=== PATIENT | female | born 1950 | race Caucasian/White ===

== ENCOUNTER → 2017-01-15 12:52 | Outpatient (CLI) | payer MEDICARE, OTHER ==
[2016-07-17 13:17] VITALS: BMI 24.8
[~2017-01-15 12:52] MED LIST: ADVAIR 500/501 DISK INH; ATIVAN0.5 MG PO; ATROVENT 0.02%2.5 ML INH; BROVANA15 MCG/2 M INH; BROVANA15 MCG/2 M NEB; CHOLESTYRAMIN4 G/PK1 PO; COMBIVENT RESPIM4 GM INH; COUMADIN5 MG PO; DOXYCYCLINE HY100 M2 PO; DUONEB 2.5-0.5 M3 ML NEB; FERREX 150 PLUS1 CAP PO; GLUCOPHAGE1000 MG PO; GLUCOPHAGE500 MG PO; GLUCOTROL XL 5 M5 MG PO; HYDROCHLOROTHIA25 MG PO; HYDROCODON-ACE1 EAC7 PO; K-DUR20 MEQ PO; KLOR-CON M2020 MEQ PO; LEVAQUIN500 MG PO; LEVAQUIN750 MG PO; MAG-OXIDE400 MG PO; MEDROL DOSE PACK4 MG PO; PREDNISONE10 MG PO; PREDNISONE20 MG PO; PREDNISONE5 MG PO; PRINIVIL20 MG PO; PULMICORT0.5 MG/21 INH; SPIRIVA18 MCG INH; STERAPRED 5MG 125 MG PO; STERAPRED DS 1210 MG PO; ZANTAC150 MG PO; ZESTRIL20 MG PO
== END | disposition home or self-care (01) ==
LOC: D.CT 12:52
DX: L92.9 Granulomatous disorder of the skin and subcutaneous tissue, unspecified (principal)

== ENCOUNTER → 2017-07-22 09:54 | Outpatient (CLI) | payer MEDICARE, OTHER ==
[2016-07-17 13:17] VITALS: BMI 24.8
== END | disposition home or self-care (01) ==
LOC: D.CT 09:54
DX: L92.9 Granulomatous disorder of the skin and subcutaneous tissue, unspecified (principal)

== ENCOUNTER 2017-08-05 08:19 | Day surgery (SDC) | payer MEDICARE, OTHER ==
[2017-08-05 08:57] VITALS: BMI 27.3
[2017-08-05 09:03] LABS: HEMATOCRIT 40.1 % (36.0-48.0); HEMOGLOBIN 12.5 g/dL (12-16); MCH 25.6 pg (26.0-34.0); MCHC 31.2 g/dL (31.0-37.0); MEAN PLATELET VOLUME 9.5 fL (7.4-10.4); RBC 4.89 10x6/uL (4.00-5.40); RDW 14.7 % (11.5-14.5); WBC 15.1 10x3/uL (4.8-10.8)
[2017-08-05 09:12] LABS: CALCIUM 9.4 mg/dL (8.5-10.1)
--- NOTE | 2017-08-05 10:44 | NUR ---
1040-RECD FROM GI LAB. DR THRASHER IN TO REPORT FINDINGS.
--- NOTE | 2017-08-05 11:40 | NUR ---
1130-IV D/C, DRESSED AND VOIDED. DISCHARGE INSTRUCTIONS REVIEWED. 1140-D/C HOME VIA WHEELCHAIR.
--- NOTE | 2017-08-05 12:21 | OP ---
PATIENT NAME: LINO ROGERS MEDICAL RECORD: [id number] :46 LOCATION:[facility] ADMISSION DATE: SURGEON: DEMETRIO THRASHER DO DATE OF OPERATION: 08/05/2017 PROCEDURE: Colonoscopy with polypectomy. 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 WITHDRAWAL TIME: 13 minutes. ESTIMATED BLOOD LOSS: Minimal. COMPLICATIONS: None. FINDINGS: Informed consent was given. The patient was made comfortable with the above medication. After reaching an adequate level of sedation by slow IV push, the patient was placed on her left side. A digital rectal examination was performed and revealed some external skin tags secondary to past hemorrhoids. The digital rectal examination was otherwise normal. The endoscope was then advanced under direct visualization through the rectum to the ileocolonic anastomosis. Scope was slowly withdrawn and mucosa was carefully examined. The prep quality was good. There were 2 polyps removed on today's examination. The first was located near the ileocolonic anastomosis. It was a benign appearing sessile polyp measuring approximately 3 mm in diameter. It was removed using hot forceps in one piece and completely retrieved. Second polyp that was removed was located in the sigmoid colon. It was a benign appearing sessile polyp measuring approximately 5 mm in diameter. It was removed using hot forceps in one piece and completely retrieved. There were some hyperplastic-appearing polyps located near the sigmoid polyp that was removed. They were cauterized using hot forceps. A single diverticulum was visualized in the sigmoid colon. Retroflexion was performed in the rectum with visualization of small nonbleeding internal hemorrhoids. The endoscope was then withdrawn from the patient. The patient tolerated the procedure well and there were no complications. IMPRESSION: 1. Two polyps were removed as described above. 2. Single diverticulum indicating diverticulosis without diverticulitis. 3. Small nonbleeding internal hemorrhoids. PLAN AND RECOMMENDATIONS: 1. Discharge home when recovery parameters are met. 2. Follow up biopsy specimen results. 3. High fiber diet. 4. Continue current medications. 5. Recall colonoscopy in 3 years for continued surveillance with a strong history of colon polyps. TRANSINT:[id number] Voice Confirmation ID: [id number] DOCUMENT ID: [id number] OPERATIVE REPORT [id number] LINO ROGERS DEMETRIO THRASHER DO at 1221 CC: [id number] DICTATION DATE: 08/05/17 1033 LAMINATOR PRINTED CIRCUIT BOARDS: 08/05/17 1215 [facility] 08/05/17 [address] [place] [address]
== END 2017-08-05 11:40 | disposition home or self-care (01) ==
LOC: D.OPS 08:19
PROVIDERS: Anesthesiology
DX: K63.5 Polyp of colon (principal); K64.8 Other hemorrhoids; I10 Essential (primary) hypertension; E11.9 Type 2 diabetes mellitus without complications; K21.9 Gastro-esophageal reflux disease without esophagitis; J44.9 Chronic obstructive pulmonary disease, unspecified; Z87.891 Personal history of nicotine dependence

== ENCOUNTER → 2017-11-15 14:08 | Outpatient (CLI) | payer MEDICARE, OTHER | END | disposition home or self-care (01) | LOC: D.MAMMO 10-03 15:30 | DX: Z12.31 Encounter for screening mammogram for malignant neoplasm of breast (principal) ==

== ENCOUNTER 2018-01-16 09:35 | Day surgery (SDC) | payer MEDICARE, OTHER ==
[2018-01-13 16:20] LABS: BASOPHILS 0.5 % (0-2); HEMOGLOBIN 11.8 g/dL (12-16); IMMATURE GRANULOCYTES 0.7 % (0-5); LYMPHOCYTES 28.8 % (15-50); MCH 26.5 pg (26.0-34.0); MCHC 31.1 g/dL (31.0-37.0); MCV 85.4 fL (80.0-100.0); PLATELET COUNT 328 10x3/uL (130-400); RBC 4.45 10x6/uL (4.00-5.40); RDW 14.6 % (11.5-14.5); WBC 13.6 10x3/uL (4.8-10.8)
[2018-01-13 17:08] LABS: INR 2.7 (0.85-1.17)
[2018-01-13 17:41] LABS: ALKALINE PHOSPHATASE 54 U/L (46-116); ALT (SGPT) 29 U/L (10-68); BILIRUBIN - TOTAL 0.27 mg/dL (0.2-1.3); CALC OSMOLALITY 277 mosm/kg (275-300); CARBON DIOXIDE 29.1 mmol/L (21.0-32.0); CHLORIDE - SERUM 100 mmol/L (98-107); CREATININE - SERUM 0.8 mg/dL (0.6-1.3); POTASSIUM - SERUM 3.5 mmol/L (3.5-5.1); PROTEIN - SERUM 7.4 g/dL (6.4-8.2); SODIUM 141 mmol/L (136-145); UREA NITROGEN 8 mg/dL (7-18); eGFR NON AFRICAN AMERICAN 75 mL/min (90-120)
[2018-01-13 17:47] LABS: GLUCOSE 80 mg/dL (74-106)
[~2018-01-16] VITALS: Ht 160 cm; Wt 68.5 kg
--- NOTE | ~2018-01-16 | OP ---
PATIENT NAME: LINO ROGERS MEDICAL RECORD: [id number] :46 LOCATION:[facility] ADMISSION DATE: SURGEON: LANE HUTCHINS MD DATE OF OPERATION: 01/16/2018 PREOPERATIVE DIAGNOSIS: Vaginal mass. POSTOPERATIVE DIAGNOSIS: Vaginal mass. PROCEDURE: Biopsy of vaginal mass. SURGEON: Lane Hutchins MD ANESTHESIA: Dr. Hart. ANESTHETIC: General. FINDINGS: A 2.5 x 0.5 cm raised lesion in the lower third of the vagina on the left vaginal wall. SPECIMEN REMOVED: Portion of vaginal mass. SPECIMEN DISPOSITION: Pathology. ESTIMATED BLOOD LOSS: Minimal. FLUIDS: 500 cc lactated Ringer's. URINE OUTPUT: Quantity sufficient void prior to the procedure. COMPLICATIONS: None. DRAINS: None. INDICATIONS: The patient is a 67-year-old female with a vaginal lesion. Due to its location, it is difficult to visualize in the clinic. The patient is consented for a biopsy in the operating room. DESCRIPTION OF PROCEDURE: After informed consent was assured, the patient was taken to the operating room where anesthetic was obtained. The patient was prepped and draped in the usual sterile fashion after being placed in Angelo stirrups. With animal assistant allowing full visualization, an elliptical biopsy was taken at the edge of the raised lesion in the skin. The specimen was sent to pathology. The brhozi-sn-hzjxr stitch was placed with 3-0 Vicryl and pressure was applied to obtain hemostasis. Povidone gel was placed over the biopsy site. The patient was taken down from the stirrups and went to as recovery area in stable condition. TRANSINT:[id number] Voice Confirmation ID: [id number] DOCUMENT ID: [id number] OPERATIVE REPORT [id number] LINO ROGERS LANE HUTCHINS MD at 1648 CC: [id number] DICTATION DATE: 01/16/18 1348 FIELD NURSE CASE MANAGER: 01/16/18 1353 [facility] 01/16/[address] [address]
[~2018-01-16 09:35] MED LIST changes: +ANORO ELLIPTA1 EACH INH; +CALCIUM 600+D T1 TA1 PO; +CATAPRES0.1 MG; +FERROUS SULFAT325 MG PO; +GABAPENTIN100 MG PO; -GLUCOPHAGE500 MG PO; +GLUCOTROL XL 1010 MG PO; +MAG-OX 400 MG400 MG PO
[2018-01-16 10:00] VITALS: BP 119/71; Ht 160 cm; Wt 68.5 kg
== END 2018-01-16 15:35 | disposition home or self-care (01) ==
LOC: D.OPS 09:35 → D.PAN 12:00 → D.OPS 12:00
PROVIDERS: Anesthesiology
DX: R22.2 Localized swelling, mass and lump, trunk (principal); I10 Essential (primary) hypertension; E11.9 Type 2 diabetes mellitus without complications; J44.9 Chronic obstructive pulmonary disease, unspecified; Z01.812 Encounter for preprocedural laboratory examination

== ENCOUNTER → 2018-01-31 13:01 | Outpatient (CLI) | payer MEDICARE, OTHER ==
[2018-01-16 10:00] VITALS: BMI 26.8
== END | disposition home or self-care (01) ==
LOC: D.CT 13:01
DX: R91.1 Solitary pulmonary nodule (principal)

== ENCOUNTER 2018-10-07 09:45 | Emergency (ER) | payer MEDICARE, OTHER ==
[2018-01-16 10:00] VITALS: Ht 160 cm; Wt 69.1 kg
[~2018-10-07] VITALS: Ht 160 cm; Wt 69.1 kg
[2018-10-07 12:18] VITALS: BP 123/065
== END 2018-10-07 12:20 | disposition home or self-care (01) ==
LOC: D.ER 09:45
DX: J44.1 Chronic obstructive pulmonary disease with (acute) exacerbation (principal)

== ENCOUNTER → 2018-10-29 11:02 | Outpatient (CLI) | payer MEDICARE, OTHER ==
[2018-10-07 09:49] VITALS: BMI 26.9
== END | disposition home or self-care (01) ==
LOC: D.MRI 11:02
DX: M54.16 Radiculopathy, lumbar region (principal)

== ENCOUNTER → 2018-11-28 08:00 | Outpatient (CLI) | payer MEDICARE, OTHER ==
[2018-10-07 09:49] VITALS: BMI 26.9
== END | disposition home or self-care (01) ==
LOC: D.MAMMO 08:00
DX: Z12.31 Encounter for screening mammogram for malignant neoplasm of breast (principal)

== ENCOUNTER 2018-12-14 04:02 | Inpatient (IN) | payer MEDICARE, OTHER ==
[~2018-12-14] VITALS: Ht 160 cm; Wt 68.0 kg
[~2018-12-14 04:02] MED LIST changes: -CATAPRES0.1 MG; +CATAPRES0.1 MG PO
[2018-12-14 04:44] LABS: BASOPHILS 0.1 % (0-2); EOSINOPHILS 0 % (0-7); HEMATOCRIT 33.9 % (36.0-48.0); HEMOGLOBIN 10.4 g/dL (12-16); IMMATURE GRANULOCYTES 0.5 % (0-5); LYMPHOCYTES 4.9 % (15-50); MCH 24.3 pg (26.0-34.0); MCHC 30.7 g/dL (31.0-37.0); MCV 79.2 fL (80.0-100.0); MEAN PLATELET VOLUME 9.1 fL (7.4-10.4); NEUTROPHILS 85.5 % (40-80); RBC 4.28 10x6/uL (4.00-5.40); RDW 16.2 % (11.5-14.5); WBC 10.7 10x3/uL (4.8-10.8)
[2018-12-14 04:45] LABS: PLATELET COUNT 262 10x3/uL (130-400)
[2018-12-14 04:55] LABS: ALBUMIN 3.8 g/dL (3.4-5.0); ALKALINE PHOSPHATASE 62 U/L (46-116); ALT (SGPT) 21 U/L (10-68); BILIRUBIN - TOTAL 0.32 mg/dL (0.2-1.3); CALC OSMOLALITY 274 mosm/kg (275-300); CALCIUM 8.1 mg/dL (8.5-10.1); CARBON DIOXIDE 25.5 mmol/L (21.0-32.0); CHLORIDE - SERUM 97 mmol/L (98-107); GLUCOSE 93 mg/dL (74-106); POTASSIUM - SERUM 3.4 mmol/L (3.5-5.1); PROTEIN - SERUM 7.8 g/dL (6.4-8.2); SODIUM 137 mmol/L (136-145); UREA NITROGEN 15 mg/dL (7-18); eGFR NON AFRICAN AMERICAN 58 mL/min (90-120)
[2018-12-14 05:04] LABS: CREATINE KINASE 43 UL (21-215); PRO BNP 205 pg/mL (0-125)
[2018-12-14 05:06] VITALS: BP 162/72
--- NOTE | 2018-12-14 05:06 | NUR ---
PT RESTING ON BED, NO S/S OF ACUTE DISTRESS NOTED. NS INFUSION STARTED.
[2018-12-14 05:09] LABS: TROPONIN-I < 0.017 ng/mL (0.000-0.060)
[2018-12-14 06:21] VITALS: BP 178/83
--- NOTE | 2018-12-14 06:23 | NUR ---
RECEIVED PT VIA STRETCHER FROM ER. PT AMBULATED TO BED. ALERT AND ORIENTED X4. POOR HISTORIAN. HOME MEDS REVIEWED. O2 @ 2L/NC. RESP EVEN AND NONLABORED. SALINE LOCK NOTED TO LT AC. NO DISTRESS. CL IN REACH.
[2018-12-14 08:51] VITALS: BMI 26.6
[2018-12-14 08:59] VITALS: BP 153/79
[2018-12-14 12:59] LABS: INR 1.95 (0.85-1.17); PROTIME 21.6 SECONDS (11.6-15.0)
[2018-12-14 13:09] VITALS: BP 115/60
[2018-12-14 16:47] VITALS: BP 149/69
[2018-12-14 17:33] LABS: % SATURATION 3 % (15-55); IRON 15 ug/dl (35-150); TOTAL IRON BIND CAPACITY 423 ug/dl (260-445); UNSAT IRON BIND CAPACITY 408 ug/dl (150-375)
[2018-12-14 19:35] LABS: CKMB 1.9 U/L (0.0-3.6); CREATINE KINASE 66 UL (21-215)
[2018-12-14 19:39] LABS: TROPONIN-I < 0.017 ng/mL (0.000-0.060)
[2018-12-14 20:00] VITALS: BP 139/55
[2018-12-14 23:53] LABS: CKMB 1.9 U/L (0.0-3.6); CREATINE KINASE 73 UL (21-215)
[2018-12-14 23:54] LABS: TROPONIN-I < 0.017 ng/mL (0.000-0.060)
[2018-12-15] VITALS: BP 132/57
[2018-12-15 03:00] VITALS: BP 147/80
[2018-12-15 06:03] LABS: BASOPHILS 0 % (0-2); EOSINOPHILS 0 % (0-7); HEMATOCRIT 32.7 % (36.0-48.0); HEMOGLOBIN 9.9 g/dL (12-16); IMMATURE GRANULOCYTES 0.4 % (0-5); LYMPHOCYTES 6.5 % (15-50); MCHC 30.3 g/dL (31.0-37.0); MCV 79.2 fL (80.0-100.0); MEAN PLATELET VOLUME 9.3 fL (7.4-10.4); MONOCYTES 2.7 % (2-11); NEUTROPHILS 90.4 % (40-80); PLATELET COUNT 237 10x3/uL (130-400); RBC 4.13 10x6/uL (4.00-5.40); RDW 16.3 % (11.5-14.5)
[2018-12-15 06:07] LABS: INR 1.98 (0.85-1.17); PROTIME 21.8 SECONDS (11.6-15.0)
[2018-12-15 06:08] LABS: WBC 5.1 10x3/uL (4.8-10.8)
[2018-12-15 06:46] LABS: CALC OSMOLALITY 287 mosm/kg (275-300); CALCIUM 7.9 mg/dL (8.5-10.1); CHLORIDE - SERUM 103 mmol/L (98-107); CKMB 1.6 U/L (0.0-3.6); CREATINE KINASE 63 UL (21-215); CREATININE - SERUM 0.8 mg/dL (0.6-1.3); GLUCOSE 223 mg/dL (74-106); POTASSIUM - SERUM 3.6 mmol/L (3.5-5.1); SODIUM 141 mmol/L (136-145); TROPONIN-I < 0.017 ng/mL (0.000-0.060); UREA NITROGEN 13 mg/dL (7-18); eGFR NON AFRICAN AMERICAN 75 mL/min (90-120)
--- NOTE | 2018-12-15 07:15 | NUR ---
MORNING ASSESSMENT COMPLETE. SEE ASSESSMENT [facility] FOR FURTHER DETAILS. PT LYING IN BED AAO X4 TO PERSON, PLACE, TIME, AND SITUATION. DENIES NEEDS AT THIS TIME. CL IN REACH. SIDE RAILS UP X3 FOR PATIENT SAEFTY.
[2018-12-15 08:44] VITALS: BP 150/78
[2018-12-15 11:54] VITALS: Ht 160 cm; Wt 68.0 kg
--- NOTE | 2018-12-15 16:55 | NUR ---
OT NOTE: PT COMPLETED BUE AROM AXS WITH REST BREAKS. PT COMPLETED BED MOB WITH MIN A AND REST BREAKS. PT COMPLETED SIMPLE GROOMING WITH SET UP. THANK YOU, MONTSERRAT MATTSON THANK YOU, SAUL THOMAS
[2018-12-15 17:17] VITALS: BP 133/68
--- NOTE | 2018-12-15 20:00 | NUR ---
PT SITTING UP IN BED, NO SIGNS OF DISTRESS. ALERT AND ORIENTED. O2 2L/NC. DROPLET ISOLATION IN PLACE. SCDS ON. IV LEFT AC INFUSING NS @ 50. DENIES NEEDS AT THIS TIME. CL IN REACH, WILL CONT TO MONITOR
[2018-12-15 20:34] VITALS: BP 140/69
[2018-12-16 04:37] LABS: BASOPHILS 0 % (0-2); EOSINOPHILS 0.1 % (0-7); HEMATOCRIT 31.2 % (36.0-48.0); HEMOGLOBIN 9.4 g/dL (12-16); IMMATURE GRANULOCYTES 0.4 % (0-5); LYMPHOCYTES 3.1 % (15-50); MCH 23.7 pg (26.0-34.0); MCHC 30.1 g/dL (31.0-37.0); MCV 78.8 fL (80.0-100.0); MEAN PLATELET VOLUME 9.2 fL (7.4-10.4); MONOCYTES 5.8 % (2-11); NEUTROPHILS 90.6 % (40-80); PLATELET COUNT 257 10x3/uL (130-400); RBC 3.96 10x6/uL (4.00-5.40); RDW 15.9 % (11.5-14.5)
[2018-12-16 04:47] LABS: WBC 11.6 10x3/uL (4.8-10.8)
[2018-12-16 04:55] LABS: INR 2.72 (0.85-1.17); PROTIME 28.1 SECONDS (11.6-15.0)
[2018-12-16 05:13] LABS: ALBUMIN 3.2 g/dL (3.4-5.0); ALKALINE PHOSPHATASE 47 U/L (46-116); ALT (SGPT) 21 U/L (10-68); BILIRUBIN - TOTAL 0.18 mg/dL (0.2-1.3); CALCIUM 7.6 mg/dL (8.5-10.1); CARBON DIOXIDE 28.4 mmol/L (21.0-32.0); CHLORIDE - SERUM 101 mmol/L (98-107); CREATININE - SERUM 0.8 mg/dL (0.6-1.3); GLUCOSE 186 mg/dL (74-106); PROTEIN - SERUM 6.6 g/dL (6.4-8.2); SODIUM 138 mmol/L (136-145); eGFR NON AFRICAN AMERICAN 75 mL/min (90-120)
[2018-12-16 05:22] LABS: CALC OSMOLALITY 283 mosm/kg (275-300); POTASSIUM - SERUM 2.9 mmol/L (3.5-5.1); UREA NITROGEN 21 mg/dL (7-18)
[2018-12-16 05:48] VITALS: BP 152/71
--- NOTE | 2018-12-16 07:30 | NUR ---
REC'D IN BED AWAKE AND ALERT. RESP EVEN AND UNLABORED WITH NO DISTRESS NOTED. CAN EXPRESS NEEDS AND WANTS. DENIES ANY PAIN OR DISCOMFORT AT THIS TIME. ASSESSMENT COMPLETED. C/L IN REACH AT BEDSIDE
[2018-12-16 09:46] VITALS: BP 170/77
[2018-12-16 15:10] VITALS: BP 116/71; BP 143/68
--- NOTE | 2018-12-16 16:26 | MORECARE ---
CASE MANAGEMENT DISCHARGE SUMMARY PATIENT: LINO ROGERS ANN UNIT: [id number] ADM DATE: 12/14/18 AGE: 68 : 48 SEX: F ROOM/BED: D.2203 AUTHOR: FAYE YANG PHYSICIAN: REFERRING PHYSICIAN: CLARENCE TOPETE MD DATE OF SERVICE: 12/16/18 Discharge Plan Patient Name: LINO ROGERS [facility] [facility] 1950 Planned Disposition: Anticipated Discharge Date: Discharge Date: Expected LOS: Initial Reviewer: [email or web address] Initial Review Date: 12/14/2018 Generated: 12/16/18 5:26 pm Comments DCP- Discharge Planning Updated by [email or web address]: Leti Wiley on 12/16/18 3:[address] attempted to see patient for assessment, but she was sleeping. will tray again tomorrow Patient Name: LINO ROGERS Page [id number] at 1626 All edits/amendments must be made on the electronic document DICTATION DATE: 12/16/181625 FREELANCE DIRECTOR: MIRA 12/16/181625 RPT#: [id number] DC DATE: STATUS: ADM IN [facility] [address] [place] [address] END OF REPORT
--- NOTE | 2018-12-16 16:38 | NUR ---
OT NOTE: PT COMPLETED BED MOB AND SITTING AT EOB WITH SBA. PT COMPLETED BUE AROM EXS WITH REST BREAKS. THANK YOU, SAUL THOMAS
--- NOTE | 2018-12-16 16:47 | NUR ---
I have reviewed this patient and I concur with the Shift Assessment completed by the Licensed Practical Nurse today this shift.
--- NOTE | 2018-12-16 16:55 | NUR ---
OT NOTE: PT CONT TO C/O SEVERE SOB WITH MINIMAL EXERTION. REPORTS THAT SHE IS COMPLETELY EXHAUSTED AFTER GOING TO BATHROOM. PT ABLE TO PERFORM BED MOB ADN SIT TO STAND WITH CGA; TOILETING WITH SBA ( HOWEVER, PT HAS REPORTEDLY GOING WITHOUT ASSIST. STANDING BALANCE IS GOOD) UE EXS WITH ONLY 5-10 REPS WITH EXT REST BREAK FOLLOWING EACH SET. LYDIA FLOYD, OTR/L
[2018-12-16 17:24] VITALS: BP 122/70
--- NOTE | 2018-12-16 19:50 | NUR ---
PT SITTING UP IN BED, NO SIGNS OF DISTRESS. ALERT AND ORIENTED. IV LEFT AC, NO REDNESS OR SWELLING AT INSERTION SITE. DRESSING CDI. DROPLET ISOLATION IN PLACE. HR 84 SR PER TELE. PT ANXIOUS AT TIMES, RECIEVING ATIVAN NEEDED. SCDS ON. NO COMPAINTS OR NEEDS AT THIS TIME. CL IN REACH, WILL CONTINUE TO MONITOR
[2018-12-16 21:37] VITALS: BP 130/71
--- NOTE | 2018-12-17 00:30 | NUR ---
PT SHORT OF BREATH UPON ENTERING ROOM. O2 SAT 94% BUT CANNOT CATCH HER BREATH. NO ACTIVITY PRIOR TO BECOMING SOB W/ AUDIBLE WHEEZES. CALLED ELAN TOOL MACHINE SETUP OPERATOR, ORDERS FOR DUONEB Q2PRN. PATIENT GIVEN TRX AND IMMEDIATELY BREATHING BECAME SLOW AND EVEN. NO OTHER NEEDS AT THIS TIME. CL IN REACH, WILL CONTINUE TO MONITOR
[2018-12-17 01:33] VITALS: BP 130/79
[2018-12-17 04:17] LABS: BASOPHILS 0.1 % (0-2); EOSINOPHILS 0 % (0-7); HEMATOCRIT 30.6 % (36.0-48.0); HEMOGLOBIN 9.3 g/dL (12-16); IMMATURE GRANULOCYTES 1.1 % (0-5); LYMPHOCYTES 2.9 % (15-50); MCH 23.8 pg (26.0-34.0); MCHC 30.4 g/dL (31.0-37.0); MCV 78.3 fL (80.0-100.0); MEAN PLATELET VOLUME 8.9 fL (7.4-10.4); NEUTROPHILS 89.9 % (40-80); PLATELET COUNT 242 10x3/uL (130-400); RBC 3.91 10x6/uL (4.00-5.40); RDW 16.1 % (11.5-14.5); WBC 10.2 10x3/uL (4.8-10.8)
[2018-12-17 04:34] LABS: ALBUMIN 3.2 g/dL (3.4-5.0); BILIRUBIN - TOTAL 0.37 mg/dL (0.2-1.3); CALCIUM 8.3 mg/dL (8.5-10.1); CARBON DIOXIDE 34.2 mmol/L (21.0-32.0); CREATININE - SERUM 0.9 mg/dL (0.6-1.3); PROTEIN - SERUM 6.6 g/dL (6.4-8.2)
[2018-12-17 04:35] LABS: ANION GAP 9.2 mmol/L (8-16); POTASSIUM - SERUM 3.4 mmol/L (3.5-5.1)
[2018-12-17 04:37] LABS: INR 3.77 (0.85-1.17); PROTIME 36.4 SECONDS (11.6-15.0)
[2018-12-17 04:48] VITALS: BP 134/66
[2018-12-17 08:45] VITALS: BP 124/56
[2018-12-17 09:19] LABS: FOLATE (FOLIC ACID) - SERUM 15.3 ng/mL (>3.0)
[2018-12-17 12:40] VITALS: BP 130/81
--- NOTE | 2018-12-17 14:28 | MORECARE ---
CASE MANAGEMENT DISCHARGE SUMMARY PATIENT: LINO ROGERS ANN UNIT: [id number] ADM DATE: 12/14/18 AGE: 68 : 48 SEX: F ROOM/BED: D.2203 AUTHOR: FAYE YANG PHYSICIAN: REFERRING PHYSICIAN: CLARENCE TOPETE MD DATE OF SERVICE: 12/17/18 Discharge Plan Patient Name: LINO ROGERS [facility] [facility] 1950 Planned Disposition: Home Anticipated Discharge Date: Discharge Date: Expected LOS: Initial Reviewer: [email or web address] Initial Review Date: 12/14/2018 Generated: 12/17/18 3:27 pm Comments DCP- Discharge Planning Updated by [email or web address]: Leti Wiley on 12/16/18 3:[address] attempted to see patient for assessment, but she was sleeping. will tray again tomorrow DCPIA - Discharge Planning Initial Assessment Updated by [email or web address]: Leti Wiley on 12/17/18 2:28 pm * Is the patient Alert and Oriented? Yes * How many steps to enter\exit or inside your home? * PCP DEYSI * Pharmacy [address] * Preadmission Environment Home with Family * ADLs Independent * Equipment None * List name and contact numbers for known caregivers / representatives who currently or will assist patient after discharge: ANITA ROGERS ([phone]) * Verbal permission to speak to the caregivers and representatives has been obtained from the patient. N/A * Community resources currently utilized None * Additional services required to return to the preadmission environment? No * Can the patient safely return to the preadmission environment? Yes * Has this patient been hospitalized within the prior 30 days at any hospital? No Last DP export: 12/16/18 3:26 p Patient Name: LINO ROGERS Page [phone] at 1428 All edits/amendments must be made on the electronic document DICTATION DATE: 12/17/181426 OPTOMETRIST ASSISTANT: MIRA 12/17/181426 RPT#: [id number] DC DATE: STATUS: ADM IN [facility] [address] [place] [address] END OF REPORT
--- NOTE | 2018-12-17 14:37 | MORECARE ---
CASE MANAGEMENT DISCHARGE SUMMARY PATIENT: LINO ROGERS ANN UNIT: [id number] ADM DATE: 12/14/18 AGE: 68 : 48 SEX: F ROOM/BED: D.2203 AUTHOR: FAYE YANG PHYSICIAN: REFERRING PHYSICIAN: CLARENCE TOPETE MD DATE OF SERVICE: 12/17/18 Discharge Plan Patient Name: LINO ROGERS Facility: [facility]:[place] : 1950 Planned Disposition: Home Anticipated Discharge Date: Discharge Date: Expected LOS: Initial Reviewer: [email or web address] Initial Review Date: 12/14/2018 Generated: 12/17/18 3:36 pm Comments DCP- Discharge Planning Updated by [email or web address]: Leti Wiley on 12/17/18 1:[address] Patient Name: LINO ROGERS Admission Status: ER Accout number: [id number] Admission Date: 12-14-2018 : 1950 Admission Diagnosis:SHORTNESS OF BREATH Attending: CLARENCE TOPETE Current LOS: 3 Anticipated DC Date: Planned Disposition: Home Primary Insurance: MEDICARE A & B Discharge Planning Comments: CM met with patient to complete initial dc planning assessment. CM educated patient on the CM role and verbal consent given by patient to complete assessment. Patient lives at home with her and stated that she is independent with her care. At discharge patient plans to return home and feels this is a safe discharge. CM discussed availability of home health, rehab services, and medical equipment. She stated that one of her kids would be taking her home . She also stated that her is a patient down stairs at the hospital. Patient denied known discharge needs at this time. CM will continue to follow and will assist as needed with dc plans/needs. Community Development Director: Leti Wiley DCP- Discharge Planning Updated by [email or web address]: Leti Wiley on 12/16/18 3:[address] attempted to see patient for assessment, but she was sleeping. will tray again tomorrow DCPIA - Discharge Planning Initial Assessment Updated by [email or web address]: Leti Wiley on 12/17/18 2:28 pm * Is the patient Alert and Oriented? Yes * How many steps to enter\exit or inside your home? * PCP JO * Pharmacy [address] * Preadmission Environment Home with Family * ADLs Independent * Equipment None * List name and contact numbers for known caregivers / representatives who currently or will assist patient after discharge: ANITA ROGERS ([phone]) * Verbal permission to speak to the caregivers and representatives has been obtained from the patient. N/A * Community resources currently utilized None * Additional services required to return to the preadmission environment? No * Can the patient safely return to the preadmission environment? Yes * Has this patient been hospitalized within the prior 30 days at any hospital? No Last DP export: 12/17/18 1:28 p Patient Name: LINO ROGERS Page [phone] at 1437 All edits/amendments must be made on the electronic document DICTATION DATE: 12/17/181435 BEAD SUPERVISOR: MIRA 12/17/181435 RPT#: [id number] DC DATE: STATUS: ADM IN [facility] [address] [place] [address] END OF REPORT
[2018-12-17 16:45] VITALS: BP 153/73
--- NOTE | 2018-12-17 16:47 | NUR ---
I have reviewed this patient and I concur with the Shift Assessment completed by the Licensed Practical Nurse today this shift.
--- NOTE | 2018-12-17 18:33 | NUR ---
PT REQUESTED ATIVAN FOR ANXIETY WAS MEDICATED WITH ATIVAN PER ORDERS.C/L IN REACH.
[2018-12-17 21:47] VITALS: BP 143/73
[2018-12-18 01:16] VITALS: BP 158/73
[2018-12-18 04:37] VITALS: BP 164/74
[2018-12-18 04:51] LABS: BASOPHILS 0.1 % (0-2); EOSINOPHILS 0 % (0-7); HEMATOCRIT 32.5 % (36.0-48.0); HEMOGLOBIN 9.8 g/dL (12-16); MCH 23.8 pg (26.0-34.0); MCHC 30.2 g/dL (31.0-37.0); MCV 78.9 fL (80.0-100.0); MEAN PLATELET VOLUME 9.4 fL (7.4-10.4); MONOCYTES 5.5 % (2-11); NEUTROPHILS 87.4 % (40-80); PLATELET COUNT 241 10x3/uL (130-400); RBC 4.12 10x6/uL (4.00-5.40); RDW 15.9 % (11.5-14.5); WBC 8.6 10x3/uL (4.8-10.8)
[2018-12-18 05:02] LABS: INR 4.06 (0.85-1.17); PROTIME 38.6 SECONDS (11.6-15.0)
[2018-12-18 05:15] LABS: ALBUMIN 3.3 g/dL (3.4-5.0); ANION GAP 11.9 mmol/L (8-16); BILIRUBIN - TOTAL 0.41 mg/dL (0.2-1.3); CALCIUM 8.7 mg/dL (8.5-10.1); CARBON DIOXIDE 31.1 mmol/L (21.0-32.0); PROTEIN - SERUM 6.3 g/dL (6.4-8.2)
--- NOTE | 2018-12-18 07:50 | NUR ---
PT RESTING IN BED WITH EYES CLOSED. AROUSED BY VERBAL STIMULI. DROPLET ISOLATION FOR FLU. NO S/S OF ACUTE DISTRESS. CL IN PLACE.
--- NOTE | 2018-12-18 07:54 | NUR ---
PT REFUSED INITIAL BRETHING TX CHARGE NURSE NOTIFIED
[2018-12-18 10:39] VITALS: BP 186/91
--- NOTE | 2018-12-18 10:39 | NUR ---
NUTRITION F/U PT REMAINS IN ISOLATION. VISITOR AT BEDSIDE. PT REPORTS TOLERATING DIABETIC DIET. WILL CONTINUE TO PROVIDE DIET, MONITOR PT PROGRESS. RD FOLLOWING
--- NOTE | 2018-12-18 12:20 | NUR ---
OT NOTE: PT VERY FRUSTRATED AND TEARFUL TODAY STATING THAT SHES NOT GETTING ANY BETTER AND STILL CANT BREATH. PT PERFORMING BED MOB WITH SPV; AMB TO BATHROOM WITH CGA, GAIT BELT, IV POLE AND 02. TOILETING AND GROOMING WITH SPV. REQUIRES EXT TIME DUE TO FREQ REST BREAKS REQUIRED. LYDIA FLOYD, OTR/L
[2018-12-18 13:03] VITALS: BP 158/77
[2018-12-18 17:59] VITALS: BP 155/76
--- NOTE | 2018-12-18 18:20 | NUR ---
PT RESTING IN BED. NO S/S OF ACUTE DISTRESS. CL IN PLACE.
[2018-12-18 20:20] VITALS: BP 189/85
--- NOTE | 2018-12-18 20:46 | NUR ---
OT NOTE: PT COMPLETED SIT TO STANDS, EOB SITTINB BALANCE, AND BED MOB WITH SBA. PT COMPLETED BUE AROM EXS AT EOB. PT COMPLETED SIMPLE GROOMING TASK AT EOB WITH SET UP. THANK YOU, SAUL THOMAS
[2018-12-19 00:31] VITALS: BP 152/60
[2018-12-19 04:17] VITALS: BP 161/93
[2018-12-19 04:30] LABS: BASOPHILS 0.1 % (0-2); EOSINOPHILS 0.1 % (0-7); HEMATOCRIT 33.8 % (36.0-48.0); HEMOGLOBIN 10.3 g/dL (12-16); IMMATURE GRANULOCYTES 3.3 % (0-5); LYMPHOCYTES 9.7 % (15-50); MCH 24.1 pg (26.0-34.0); MCHC 30.5 g/dL (31.0-37.0); MCV 79.2 fL (80.0-100.0); MEAN PLATELET VOLUME 9.2 fL (7.4-10.4); MONOCYTES 9.9 % (2-11); NEUTROPHILS 76.9 % (40-80); RBC 4.27 10x6/uL (4.00-5.40)
[2018-12-19 04:32] LABS: PLATELET COUNT 303 10x3/uL (130-400); WBC 13.8 10x3/uL (4.8-10.8)
[2018-12-19 04:40] LABS: PROTIME 31.4 SECONDS (11.6-15.0)
[2018-12-19 04:43] LABS: INR 3.12 (0.85-1.17)
[2018-12-19 05:03] LABS: ALBUMIN 3.4 g/dL (3.4-5.0); BILIRUBIN - TOTAL 0.5 mg/dL (0.2-1.3); CALCIUM 8.2 mg/dL (8.5-10.1); CREATININE - SERUM 0.9 mg/dL (0.6-1.3); PROTEIN - SERUM 6.5 g/dL (6.4-8.2)
[2018-12-19 09:38] VITALS: BP 180/94
--- NOTE | 2018-12-19 10:32 | NUR ---
Rehab Prescreening Consult recieved and the chart has been reviewed. She is a good ARU candidate when medically stable and able to participate in the required 3 hrs of therapy. She is not feeling well today and has orders pending. Pippa Flores RN Clinical Liaison, Rehab
[2018-12-19 13:53] LABS: APPEARANCE CLEAR (CLEAR); BILIRUBIN NEGATIVE (NEGATIVE); COLOR YELLOW (YELLOW); GLUCOSE NEGATIVE (NEGATIVE); KETONE NEGATIVE (NEGATIVE); NITRITE NEGATIVE (NEGATIVE); PROTEIN NEGATIVE (NEGATIVE); UROBILINOGEN NORMAL (NORMAL)
[2018-12-19 13:55] VITALS: BP 136/65
--- NOTE | 2018-12-19 14:57 | EC ---
PATIENT:LINO ROGERS DATE OF SERVICE: 12/14/18 SEX: F MEDICAL RECORD: [id number] DATE OF : [birth year] LOCATION:[facility] AGE OF PATIENT: 68 ADMISSION DATE: 12/14/18 REFERRING PHYSICIAN: INTERPRETING PHYSICIAN: FRANKI CISSE MD ECHOCARDIOGRAM REPORT ECHO CHARGES 4 ECHO COMPLETE Date: 12/15/18 CLINICAL DIAGNOSIS: EVALUATE FUNCTION ECHOCARDIOGRAPHIC MEASUREMENTS (adult normal given) AC root (d.<3.7cm) 2.7 cm LV Septum d (<1.2 cm> 1.0 cm Valve Excursion 1.6 cm LV Septum (systole) 1.2 cm Left Atria (s.<4.0cm> 2.5 cm LVPW d(<1.2cm) 1.3 cm RV (d.<2.3cm) 2.2 cm LVPW (sytole) 1.5 cm LV diastole(<5.6CM) 4.9 cm MV E-F(>70mm/sec) cm LV systole 4.4 cm LVOT Diameter 1.7 cm MV exc.(>10mm) cm Est.ejection fraction (50-75%) % DOPPLER: LVIT cm/sec A 28 cm/sec E 117 cm/sec LA cm/sec RVSP 17.0 mmHg LVOT 135 cm/sec AOP1/2T m/s Asc. Ao 163 cm/sec RVOT 65 cm/sec RA cm/sec PA 103 cm/sec AV Gradient Peak 10.6 mmHg AV Mean 5.8 mmHg AV Area 2.2 cm MV Gradient Peak 6.4 mmHg MV Mean 2.0 mmHg MV Area cm COMMENTS: Dispensary Technician: Tammy OROURKE Field Support Specialist: 1 Dr. Cisse TAPE# PACS Pericardial Effusion N DATE OF SERVICE: 12/15/2018 FINDINGS: 1. Left ventricular chamber size is within normal limits. Left ventricular systolic function is normal. Overall ejection fraction is estimated at 60%. 2. Left atrium, right atrium, and right ventricular chamber sizes are within normal limit. 3. Valvular structures have normal structure and motion. 4. Doppler interrogation reveals trace tricuspid regurgitation. No other valvular insufficiency or stenosis. Pulmonary systolic pressure is estimated at ECHOCARDIOGRAM REPORT [id number] LINO ROGERS 17 mmHg. 5. No evidence of pericardial effusion or left ventricular thrombus. TRANSINT:[id number] Voice Confirmation ID: [id number] DOCUMENT ID: [id number] FRANKI CISSE MD at 1457 CC: [id number] DICTATION DATE: 12/15/18 1637 CASH MANAGEMENT CLERK: 12/15/18 191 ADM IN [facility] [address] [place] [address]
[2018-12-19 18:07] VITALS: BP 154/75
--- NOTE | 2018-12-19 19:30 | NUR ---
PT LYING IN BED ASLEEP, NO SIGNS OF DISTRESS. IV LEFT AC INFUSING NS @ 10. NO REDNESS OR SWELLING AT INSERTION SITE. DRESSING CDI. CL IN REACH, WILL CONTINUE TO MONITOR
[2018-12-19 20:53] VITALS: BP 138/73
--- NOTE | 2018-12-19 22:20 | NUR ---
PT SITTING UP IN BED, SOME ANXIETY AND STATING SHE DOES NOT KNOW WHY SHE IS NOT GETTING BETTER. REQUESTED AND GIVEN ATIVAN. BS 111, NO COVERAGE. CL IN REACH, WILL CONTINUE TO MONITOR
--- NOTE | 2018-12-20 03:00 | NUR ---
PT GETTING ANXIOUS, GAVE ATIVAN. DENIES OTHER NEEDS AT THIS TIME. CL IN REACH, WILL CONTINUE TO MONITOR
[2018-12-20 06:42] LABS: BASOPHILS 0.1 % (0-2); EOSINOPHILS 1.5 % (0-7); HEMATOCRIT 35.3 % (36.0-48.0); HEMOGLOBIN 10.6 g/dL (12-16); IMMATURE GRANULOCYTES 1.6 % (0-5); LYMPHOCYTES 8.5 % (15-50); MCH 23.8 pg (26.0-34.0); MCV 79.3 fL (80.0-100.0); MEAN PLATELET VOLUME 9.3 fL (7.4-10.4); MONOCYTES 10.2 % (2-11); NEUTROPHILS 78.1 % (40-80); PLATELET COUNT 287 10x3/uL (130-400); RBC 4.45 10x6/uL (4.00-5.40); RDW 16.2 % (11.5-14.5); WBC 14.2 10x3/uL (4.8-10.8)
[2018-12-20 07:12] LABS: INR 2.18 (0.85-1.17); PROTIME 23.6 SECONDS (11.6-15.0)
[2018-12-20 07:30] LABS: ALBUMIN 3.1 g/dL (3.4-5.0); ALKALINE PHOSPHATASE 53 U/L (46-116); ALT (SGPT) 51 U/L (10-68); BILIRUBIN - TOTAL 0.81 mg/dL (0.2-1.3); CALC OSMOLALITY 269 mosm/kg (275-300); CALCIUM 8.4 mg/dL (8.5-10.1); CARBON DIOXIDE 33.9 mmol/L (21.0-32.0); CHLORIDE - SERUM 92 mmol/L (98-107); CREATININE - SERUM 0.7 mg/dL (0.6-1.3); GLUCOSE 135 mg/dL (74-106); POTASSIUM - SERUM 3.5 mmol/L (3.5-5.1); PROTEIN - SERUM 6.5 g/dL (6.4-8.2); SODIUM 133 mmol/L (136-145); UREA NITROGEN 19 mg/dL (7-18); eGFR NON AFRICAN AMERICAN 88 mL/min (90-120)
[2018-12-20 09:19] VITALS: BP 111/70
[2018-12-20 14:25] VITALS: BP 113/60
[2018-12-20 18:05] VITALS: BP 135/75
[2018-12-20 20:00] VITALS: BP 118/68
--- NOTE | 2018-12-20 20:30 | NUR ---
PT ANXIOUS, STATING SHE STILL DOES NOT FEEL LIKE SHE IS GETTING BETTER. GAVE ATIVAN REQUESTED. ALERT AND ORIENTED. OCCASIONAL NONPRODUCTIVE COUGH. HR 84 SR PER TELE. EXP WHEEZES HEARD BILAT. IV LEFT FA INFUSING NS @ KVO. BS 117, NO COVERAGE PER SS. DENIES NEEDS AT THIS TIME. CL IN REACH, WILL CONTINUE TO MONITOR
[2018-12-21] VITALS: BP 121/71
[2018-12-21 04:00] VITALS: BP 123/60
[2018-12-21 05:01] LABS: BASOPHILS 0.1 % (0-2); EOSINOPHILS 3.5 % (0-7); HEMATOCRIT 33.6 % (36.0-48.0); HEMOGLOBIN 10.1 g/dL (12-16); IMMATURE GRANULOCYTES 1.7 % (0-5); LYMPHOCYTES 13.3 % (15-50); MCH 23.7 pg (26.0-34.0); MCHC 30.1 g/dL (31.0-37.0); MCV 78.7 fL (80.0-100.0); MEAN PLATELET VOLUME 9.1 fL (7.4-10.4); MONOCYTES 12.6 % (2-11); NEUTROPHILS 68.8 % (40-80); PLATELET COUNT 260 10x3/uL (130-400); RBC 4.27 10x6/uL (4.00-5.40); RDW 16.2 % (11.5-14.5)
[2018-12-21 05:06] LABS: WBC 10.4 10x3/uL (4.8-10.8)
[2018-12-21 05:26] LABS: CALC OSMOLALITY 266 mosm/kg (275-300); CARBON DIOXIDE 34.6 mmol/L (21.0-32.0); CHLORIDE - SERUM 94 mmol/L (98-107); CREATININE - SERUM 0.8 mg/dL (0.6-1.3); GLUCOSE 101 mg/dL (74-106); POTASSIUM - SERUM 3.1 mmol/L (3.5-5.1); SODIUM 133 mmol/L (136-145); THYROID STIMULATING HORMONE 0.22 uIU/mL (0.36-3.74); UREA NITROGEN 16 mg/dL (7-18); eGFR NON AFRICAN AMERICAN 75 mL/min (90-120)
[2018-12-21 05:27] LABS: INR 1.57 (0.85-1.17); PROTIME 18.2 SECONDS (11.6-15.0)
[2018-12-21 10:10] VITALS: BP 109/65
--- NOTE | 2018-12-21 13:40 | NUR ---
OT NOTE: REFUSED OT TODAY REPORTING THAT SHE WAS TOO TIRED AND FELT VERY BAD. WILL ATTEMPT TOMORROW. LYDIA FLOYD, OTR/L
[2018-12-21 14:23] VITALS: BP 101/54
[2018-12-21 16:00] VITALS: BP 126/66
[2018-12-21 20:00] VITALS: BP 119/50; BP 221/60
--- NOTE | 2018-12-21 20:30 | NUR ---
PT SITTING UP IN BED, NO SIGNS OF DISTRESS. ALERT AND ORIENTED. PT REQUESTING ATIVAN STATING SHE FEELS AN ANXIETY ATTACK COMING ON. GAVE ATIVAN ORDERED. DOES NOT WANT TO WEAR SCDS AT THIS TIME. BS 134, NO COVERAGE PER SS. DENIES OTHER NEEDS OR COMPLAINTS AT THIS TIME. CL IN REACH, WILL CONTINUE TO MONITOR
[2018-12-22] VITALS: BP 121/56
[2018-12-22 03:00] VITALS: BP 125/61
[2018-12-22 05:36] LABS: CARBON DIOXIDE 29.4 mmol/L (21.0-32.0); CHLORIDE - SERUM 92 mmol/L (98-107); CREATININE - SERUM 0.8 mg/dL (0.6-1.3); POTASSIUM - SERUM 4.1 mmol/L (3.5-5.1); SODIUM 129 mmol/L (136-145); eGFR NON AFRICAN AMERICAN 75 mL/min (90-120)
[2018-12-22 05:40] LABS: CALC OSMOLALITY 269 mosm/kg (275-300); GLUCOSE 237 mg/dL (74-106); UREA NITROGEN 22 mg/dL (7-18)
[2018-12-22 05:45] LABS: INR 1.33 (0.85-1.17); PROTIME 15.9 SECONDS (11.6-15.0)
[2018-12-22 05:49] LABS: HEMATOCRIT 30.9 % (36.0-48.0); HEMOGLOBIN 9.6 g/dL (12-16); MCH 24.1 pg (26.0-34.0); MCHC 31.1 g/dL (31.0-37.0); MCV 77.6 fL (80.0-100.0); MEAN PLATELET VOLUME 9.3 fL (7.4-10.4); PLATELET COUNT 251 10x3/uL (130-400); RBC 3.98 10x6/uL (4.00-5.40); WBC 10.1 10x3/uL (4.8-10.8)
[2018-12-22 06:37] LABS: HYPER SEGMENTED NEUTROPHILS 1+; LYMPHOCYTES 3 % (15-50); NEUTROPHILS 94 % (40-80); PLATELET ESTIMATE NORMAL
[2018-12-22 06:38] LABS: ANISOCYTOSIS 3+; ELLIPTOCYTES 2+
--- NOTE | 2018-12-22 08:00 | NUR ---
MORNING ASSESSMENT COMPLETE SEE ASSESSMENT FL[facility] FOR FURTHER DETAILS. PT LYING IN BED AAO X4 TO PERSON, PLACE, TIME, AND SITUATION. DENIES NEEDS AT THIS TIME. CL IN REACH
[2018-12-22 09:23] VITALS: BP 135/67
[2018-12-22] MEDS ORDERED: IPRAT-ALBUT 0.5-3 ML UPD (12:18)
[2018-12-22] MEDS ORDERED: BROVANA15 MCG/2 M INH (12:18)
[2018-12-22] MEDS ORDERED: MUCINEX DM ER1 EAC1 PO (12:19)
[2018-12-22] MEDS ORDERED: PULMICORT0.5 MG/21 UPD (12:19)
[2018-12-22] MEDS ORDERED: DALIRESP500 MCG PO (12:19)
[2018-12-22] MEDS ORDERED: SINGULAIR10 MG PO (12:19)
[2018-12-22] MEDS ORDERED: TESSALON PERLE100 MG PO (12:19)
[2018-12-22] MEDS ORDERED: COUMADIN3 MG PO (12:19)
[2018-12-22] MEDS ORDERED: MIRALAX17 GM PO (12:20)
[2018-12-22] MEDS ORDERED: PROTONIX40 MG PO (12:20)
[2018-12-22] MEDS ORDERED: HUMALOG 30100 UNITS/ SC (12:20)
[2018-12-22] MEDS ORDERED: FLUTICASONE PRO16 GM NASAL (12:20)
[2018-12-22] MEDS ORDERED: PREDNISONE10 MG PO (12:20)
[2018-12-22] MEDS ORDERED: FLORAJEN3 CAPS460 MG PO (12:20)
[2018-12-22] MEDS ORDERED: LEXAPRO10 MG PO (12:21)
[2018-12-22 13:49] VITALS: BP 102/56
--- NOTE | 2018-12-22 13:51 | MORECARE ---
CASE MANAGEMENT DISCHARGE SUMMARY PATIENT: LINO ROGERS ANN UNIT: [id number] ADM DATE: 12/14/18 AGE: 68 : 48 SEX: F ROOM/BED: D.2204 AUTHOR: FAYE YANG PHYSICIAN: REFERRING PHYSICIAN: CLARENCE TOPETE MD DATE OF SERVICE: 12/22/18 Discharge Plan Patient Name: LINO ROGERS Facility: [facility]:[place] : 1950 Planned Disposition: Inpatient Rehab Anticipated Discharge Date: Discharge Date: Expected LOS: Initial Reviewer: [email or web address] Initial Review Date: 12/14/2018 Generated: 12/22/18 2:51 pm Comments DCP- Discharge Planning Updated by [email or web address]: Leti Wiley on 12/17/18 1:[address] Patient Name: LINO ROGERS Admission Status: ER Accout number: [id number] Admission Date: 12-14-2018 : 1950 Admission Diagnosis:SHORTNESS OF BREATH Attending: CLARENCE TOPETE Current LOS: 3 Anticipated DC Date: Planned Disposition: Home Primary Insurance: MEDICARE A & B Discharge Planning Comments: CM met with patient to complete initial dc planning assessment. CM educated patient on the CM role and verbal consent given by patient to complete assessment. Patient lives at home with her and stated that she is independent with her care. At discharge patient plans to return home and feels this is a safe discharge. CM discussed availability of home health, rehab services, and medical equipment. She stated that one of her kids would be taking her home . She also stated that her is a patient down stairs at the hospital. Patient denied known discharge needs at this time. CM will continue to follow and will assist as needed with dc plans/needs. Roller Printer: Leti Wiley DCP- Discharge Planning Updated by [email or web address]: Leti Wiley on 12/16/18 3:[address] attempted to see patient for assessment, but she was sleeping. will tray again tomorrow DCPIA - Discharge Planning Initial Assessment Updated by [email or web address]: Leti Wiley on 12/17/18 2:28 pm * Is the patient Alert and Oriented? Yes * How many steps to enter\exit or inside your home? * PCP DEYSI * Pharmacy [address] * Preadmission Environment Home with Family * ADLs Independent * Equipment None * List name and contact numbers for known caregivers / representatives who currently or will assist patient after discharge: ANITA ROGERS ([phone]) * Verbal permission to speak to the caregivers and representatives has been obtained from the patient. N/A * Community resources currently utilized None * Additional services required to return to the preadmission environment? No * Can the patient safely return to the preadmission environment? Yes * Has this patient been hospitalized within the prior 30 days at any hospital? No Coverage Notice Reviewer: [email or web address] Robel Tirado Notice Issued Date-Time: 12/22/2018 13:38 Notice Type: IM Discharge Notice Notice Delivered To: Patient Relationship to Patient: Cable Television Line Technician Name: Delivery Method: HAND - Hand Delivered Sara Days: Prior Verbal Notification: Recipient Understood Notice: Yes Recipient Signature: Yes Med Rec Note Co-signed by Attending: Coverage Notice Comment: Last DP export: 12/17/18 1:36 p Patient Name: LINO ROGERS Page 35089 at 1351 All edits/amendments must be made on the electronic document DICTATION DATE: 12/22/18 1351 CAPTAIN'S ASSISTANT: MIRA 12/22/18 1351 RPT#: [id number] DC DATE: STATUS: ADM IN [facility] [address] [place] [address] END OF REPORT
--- NOTE | 2018-12-22 16:39 | MORECARE ---
CASE MANAGEMENT DISCHARGE SUMMARY PATIENT: LINO ROGERS ANN UNIT: [id number] ADM DATE: 12/14/18 AGE: 68 : 48 SEX: F ROOM/BED: D.2204 AUTHOR: FAYE YANG PHYSICIAN: REFERRING PHYSICIAN: CLARENCE TOPETE MD DATE OF SERVICE: 12/22/18 Discharge Plan Patient Name: LINO ROGERS Facility: [facility]:[place] : 1950 Planned Disposition: Inpatient Rehab Anticipated Discharge Date: 12/22/18 Discharge Date: 12/22/2018 Expected LOS: 8 Initial Reviewer: [id number] Initial Review Date: 12/14/2018 Generated: 12/22/18 5:39 pm Comments DCP- Discharge Planning Updated by [id number]: Leti Wiley on 12/17/18 1:[address] Patient Name: LINO ROGERS Admission Status: ER Accout number: [id number] Admission Date: 12-14-2018 : 1950 Admission Diagnosis:SHORTNESS OF BREATH Attending: CLARENCE TOPETE Current LOS: 3 Anticipated DC Date: Planned Disposition: Home Primary Insurance: MEDICARE A & B Discharge Planning Comments: CM met with patient to complete initial dc planning assessment. CM educated patient on the CM role and verbal consent given by patient to complete assessment. Patient lives at home with her and stated that she is independent with her care. At discharge patient plans to return home and feels this is a safe discharge. CM discussed availability of home health, rehab services, and medical equipment. She stated that one of her kids would be taking her home . She also stated that her is a patient down stairs at the hospital. Patient denied known discharge needs at this time. CM will continue to follow and will assist as needed with dc plans/needs. District Extension Service Agent: Leti Wiley DCP- Discharge Planning Updated by [email or web address]: Leti Wiley on 12/16/18 3:[address] attempted to see patient for assessment, but she was sleeping. will tray again tomorrow DCPIA - Discharge Planning Initial Assessment Updated by [email or web address]: Leti Wiley on 12/17/18 2:28 pm * Is the patient Alert and Oriented? Yes * How many steps to enter\exit or inside your home? * PCP DEYSI * Pharmacy [address] * Preadmission Environment Home with Family * ADLs Independent * Equipment None * List name and contact numbers for known caregivers / representatives who currently or will assist patient after discharge: ANITA ROGERS ([phone]) * Verbal permission to speak to the caregivers and representatives has been obtained from the patient. N/A * Community resources currently utilized None * Additional services required to return to the preadmission environment? No * Can the patient safely return to the preadmission environment? Yes * Has this patient been hospitalized within the prior 30 days at any hospital? No Coverage Notice Reviewer: [id number] Robel Tirado Notice Issued Date-Time: 12/22/2018 13:38 Notice Type: IM Discharge Notice Notice Delivered To: Patient Relationship to Patient: Insurance Administrator Name: Delivery Method: HAND - Hand Delivered Sara Days: Prior Verbal Notification: Recipient Understood Notice: Yes Recipient Signature: Yes Med Rec Note Co-signed by Attending: Coverage Notice Comment: Last DP export: 12/22/18 12:51 p Patient Name: LINO ROGERS Page 53401 at 1639 All edits/amendments must be made on the electronic document DICTATION DATE: 12/22/181638 SORTING AND FOLDING SUPERVISOR: MIRA 12/22/181638 RPT#: [id number] DC DATE:12/22/18 STATUS: DIS IN [facility] [address] [place] [address] END OF REPORT
[2018-12-22 20:07] LABS: OVA + PARASITE EXAM Final report (())
--- NOTE | 2018-12-23 12:07 | MORECARE ---
CASE MANAGEMENT DISCHARGE SUMMARY PATIENT: LINO ROGERS ANN UNIT: [id number] ADM DATE: 12/14/18 AGE: 68 : 48 SEX: F ROOM/BED: D.2204 AUTHOR: FAYE YANG PHYSICIAN: REFERRING PHYSICIAN: CLARENCE TOPETE MD DATE OF SERVICE: 12/23/18 Discharge Plan Patient Name: LINO ROGERS Facility: [facility]:[place] : 1950 Planned Disposition: Inpatient Rehab Anticipated Discharge Date: 12/22/18 Discharge Date: 12/22/2018 Expected LOS: 8 Initial Reviewer: [id number] Initial Review Date: 12/14/2018 Generated: 12/23/18 1:06 pm Comments DCP- Discharge Planning Updated by [email or web address]: Leti Wiley on 12/17/18 1:[address] Patient Name: LINO ROGERS Admission Status: ER Accout number: [id number] Admission Date: 12-14-2018 : 1950 Admission Diagnosis:SHORTNESS OF BREATH Attending: CLARENCE TOPETE Current LOS: 3 Anticipated DC Date: Planned Disposition: Home Primary Insurance: MEDICARE A & B Discharge Planning Comments: CM met with patient to complete initial dc planning assessment. CM educated patient on the CM role and verbal consent given by patient to complete assessment. Patient lives at home with her and stated that she is independent with her care. At discharge patient plans to return home and feels this is a safe discharge. CM discussed availability of home health, rehab services, and medical equipment. She stated that one of her kids would be taking her home . She also stated that her is a patient down stairs at the hospital. Patient denied known discharge needs at this time. CM will continue to follow and will assist as needed with dc plans/needs. Dining Manager: Leti Wiley DCP- Discharge Planning Updated by [email or web address]: Leti Wiley on 12/16/18 3:[address] attempted to see patient for assessment, but she was sleeping. will tray again tomorrow DCPIA - Discharge Planning Initial Assessment Updated by [email or web address]: Leti Wiley on 12/17/18 2:28 pm * Is the patient Alert and Oriented? Yes * How many steps to enter\exit or inside your home? * PCP DEYSI * Pharmacy [address] * Preadmission Environment Home with Family * ADLs Independent * Equipment None * List name and contact numbers for known caregivers / representatives who currently or will assist patient after discharge: ANITA ROGERS ([phone]) * Verbal permission to speak to the caregivers and representatives has been obtained from the patient. N/A * Community resources currently utilized None * Additional services required to return to the preadmission environment? No * Can the patient safely return to the preadmission environment? Yes * Has this patient been hospitalized within the prior 30 days at any hospital? No Coverage Notice Reviewer: [id number] Robel Tirado Notice Issued Date-Time: 12/22/2018 13:38 Notice Type: IM Discharge Notice Notice Delivered To: Patient Relationship to Patient: Rn Circulating Name: Delivery Method: HAND - Hand Delivered Sara Days: Prior Verbal Notification: Recipient Understood Notice: Yes Recipient Signature: Yes Med Rec Note Co-signed by Attending: Coverage Notice Comment: Last DP export: 12/22/18 3:39 p Patient Name: LINO ROGERS Page 58275 at 1207 All edits/amendments must be made on the electronic document DICTATION DATE: 12/23/181205 PLATE SHOP HELPER: MIRA 12/23/181205 RPT#: [id number] DC DATE:12/22/18 STATUS: DIS IN [facility] [address] [place] [address] END OF REPORT
== END 2018-12-22 16:06 | DRG 189 ==
LOC: D.ER 04:02 → D.MS 05:51
PROVIDERS: Family Medicine; Internal Medicine Nephrology; ADMIT Emergency Medicine; ATTEND Emergency Medicine
DX: J96.00 Acute respiratory failure, unspecified whether with hypoxia or hypercapnia (principal); J44.0 Chronic obstructive pulmonary disease with (acute) lower respiratory infection; J20.9 Acute bronchitis, unspecified; I11.0 Hypertensive heart disease with heart failure; I50.9 Heart failure, unspecified; E11.9 Type 2 diabetes mellitus without complications; E87.6 Hypokalemia; E86.0 Dehydration; J11.1 Influenza due to unidentified influenza virus with other respiratory manifestations

== ENCOUNTER 2018-12-22 15:36 | Inpatient (IN) | payer MEDICARE, OTHER ==
[~2018-12-22] VITALS: Ht 160 cm; Wt 63.5 kg
[~2018-12-22 15:36] MED LIST changes: +COUMADIN3 MG PO; +DALIRESP500 MCG PO; +FLORAJEN3 CAPS460 MG PO; +FLUTICASONE PRO16 GM NASAL; +HUMALOG 30100 UNITS/ SC; +IPRAT-ALBUT 0.5-3 ML UPD; +LEXAPRO10 MG PO; +MIRALAX17 GM PO; +MUCINEX DM ER1 EAC1 PO; +PROTONIX40 MG PO; +PULMICORT0.5 MG/21 UPD; +SINGULAIR10 MG PO; +TESSALON PERLE100 MG PO
[2018-12-22 16:32] VITALS: BP 96/60
[2018-12-23 06:28] LABS: BASOPHILS 0 % (0-2); EOSINOPHILS 1.1 % (0-7); HEMATOCRIT 32.5 % (36.0-48.0); IMMATURE GRANULOCYTES 1.8 % (0-5); LYMPHOCYTES 11.1 % (15-50); MCH 23.9 pg (26.0-34.0); MCHC 30.8 g/dL (31.0-37.0); MCV 77.6 fL (80.0-100.0); MEAN PLATELET VOLUME 9.2 fL (7.4-10.4); MONOCYTES 12.1 % (2-11); NEUTROPHILS 73.9 % (40-80); RBC 4.19 10x6/uL (4.00-5.40); RDW 16.2 % (11.5-14.5)
[2018-12-23 06:31] LABS: PLATELET COUNT 326 10x3/uL (130-400); WBC 17.1 10x3/uL (4.8-10.8)
[2018-12-23 06:49] LABS: INR 1.21 (0.85-1.17); PROTIME 14.7 SECONDS (11.6-15.0)
[2018-12-23 06:58] LABS: ANION GAP 11.7 mmol/L (8-16); CALCIUM 8.7 mg/dL (8.5-10.1); CARBON DIOXIDE 30.2 mmol/L (21.0-32.0); POTASSIUM - SERUM 3.9 mmol/L (3.5-5.1)
[2018-12-23 08:16] VITALS: BP 111/63
[2018-12-23 10:16] VITALS: Ht 160 cm; Wt 63.5 kg
[2018-12-23 19:00] VITALS: BP 112/49
[2018-12-24 05:41] LABS: BASOPHILS 0.1 % (0-2); EOSINOPHILS 1.1 % (0-7); HEMATOCRIT 31.4 % (36.0-48.0); HEMOGLOBIN 9.7 g/dL (12-16); IMMATURE GRANULOCYTES 1.2 % (0-5); LYMPHOCYTES 13.5 % (15-50); MCHC 30.9 g/dL (31.0-37.0); MCV 77.5 fL (80.0-100.0); MEAN PLATELET VOLUME 9.2 fL (7.4-10.4); NEUTROPHILS 70.1 % (40-80); PLATELET COUNT 275 10x3/uL (130-400); RBC 4.05 10x6/uL (4.00-5.40); RDW 16.3 % (11.5-14.5); WBC 13.3 10x3/uL (4.8-10.8)
[2018-12-24 06:12] LABS: ALBUMIN 3.2 g/dL (3.4-5.0); ANION GAP 10.9 mmol/L (8-16); BILIRUBIN - TOTAL 0.48 mg/dL (0.2-1.3); CALCIUM 8.8 mg/dL (8.5-10.1); CARBON DIOXIDE 30.2 mmol/L (21.0-32.0); CREATININE - SERUM 0.9 mg/dL (0.6-1.3); POTASSIUM - SERUM 4.1 mmol/L (3.5-5.1); PROTEIN - SERUM 6.3 g/dL (6.4-8.2)
[2018-12-24 06:18] LABS: INR 1.18 (0.85-1.17); PROTIME 14.5 SECONDS (11.6-15.0)
[2018-12-24 08:16] VITALS: BP 134/55
[2018-12-24 19:00] VITALS: BP 99/40
[2018-12-25 07:46] LABS: BASOPHILS 0.1 % (0-2); EOSINOPHILS 0.9 % (0-7); HEMATOCRIT 31.2 % (36.0-48.0); HEMOGLOBIN 9.6 g/dL (12-16); IMMATURE GRANULOCYTES 0.9 % (0-5); LYMPHOCYTES 13.9 % (15-50); MCHC 30.8 g/dL (31.0-37.0); MEAN PLATELET VOLUME 9.4 fL (7.4-10.4); MONOCYTES 11.1 % (2-11); NEUTROPHILS 73.1 % (40-80); PLATELET COUNT 261 10x3/uL (130-400); RDW 16.5 % (11.5-14.5); WBC 13.6 10x3/uL (4.8-10.8)
[2018-12-25 07:58] VITALS: BP 120/65
[2018-12-25 08:01] LABS: ANION GAP 10.7 mmol/L (8-16); CARBON DIOXIDE 31.2 mmol/L (21.0-32.0); CREATININE - SERUM 0.9 mg/dL (0.6-1.3); POTASSIUM - SERUM 3.9 mmol/L (3.5-5.1)
[2018-12-25 15:20] LABS: INR 1.21 (0.85-1.17); PROTIME 14.8 SECONDS (11.6-15.0)
[2018-12-25 19:00] VITALS: BP 91/44
[2018-12-26 08:00] VITALS: BP 97/53
[2018-12-26 19:00] VITALS: BP 97/41
[2018-12-27 07:30] VITALS: BP 151/49
[2018-12-27 20:41] VITALS: BP 101/45
[2018-12-28 10:51] VITALS: BP 117/48
[2018-12-28 20:08] VITALS: BP 99/45
[2018-12-29 08:17] VITALS: BP 106/54
[2018-12-29 12:58] LABS: INR 1.73 (0.85-1.17); PROTIME 19.6 SECONDS (11.6-15.0)
[2018-12-29 19:00] VITALS: BP 106/45
[2018-12-30 08:00] VITALS: BP 104/51
[2018-12-30 19:00] VITALS: BP 126/64
[2018-12-31 08:00] VITALS: BP 132/64
[2018-12-31 09:29] LABS: BASOPHILS 0.1 % (0-2); HEMATOCRIT 32.3 % (36.0-48.0); HEMOGLOBIN 9.8 g/dL (12-16); IMMATURE GRANULOCYTES 0.8 % (0-5); LYMPHOCYTES 8.9 % (15-50); MCH 23.8 pg (26.0-34.0); MCHC 30.3 g/dL (31.0-37.0); MCV 78.6 fL (80.0-100.0); MONOCYTES 7.3 % (2-11); NEUTROPHILS 81.9 % (40-80); PLATELET COUNT 279 10x3/uL (130-400); RBC 4.11 10x6/uL (4.00-5.40); RDW 17.1 % (11.5-14.5); WBC 14.5 10x3/uL (4.8-10.8)
[2018-12-31 09:55] LABS: ANION GAP 14.5 mmol/L (8-16); CALCIUM 9.1 mg/dL (8.5-10.1); CARBON DIOXIDE 27.6 mmol/L (21.0-32.0); CREATININE - SERUM 1.1 mg/dL (0.6-1.3); POTASSIUM - SERUM 4.1 mmol/L (3.5-5.1)
[2018-12-31 19:00] VITALS: BP 97/55
[2019-01-01 08:00] VITALS: BP 108/53
[2019-01-01 08:06] LABS: INR 1.91 (0.85-1.17); PROTIME 21.3 SECONDS (11.6-15.0)
== END 2019-01-01 13:58 | disposition home or self-care (01) | DRG 91 ==
LOC: D.REHAB 15:36
PROVIDERS: Family Medicine; ADMIT Emergency Medicine; ATTEND Emergency Medicine
DX: G72.89 Other specified myopathies (principal); J96.01 Acute respiratory failure with hypoxia; J44.1 Chronic obstructive pulmonary disease with (acute) exacerbation; J11.1 Influenza due to unidentified influenza virus with other respiratory manifestations; J20.9 Acute bronchitis, unspecified; J30.9 Allergic rhinitis, unspecified; Z79.01 Long term (current) use of anticoagulants; Z86.711 Personal history of pulmonary embolism; M19.90 Unspecified osteoarthritis, unspecified site; R53.81 Other malaise; Z87.891 Personal history of nicotine dependence; D63.8 Anemia in other chronic diseases classified elsewhere; E87.6 Hypokalemia; R53.1 Weakness; D72.829 Elevated white blood cell count, unspecified; E11.65 Type 2 diabetes mellitus with hyperglycemia

== ENCOUNTER 2019-01-26 15:48 | Inpatient (IN) | payer MEDICARE, OTHER ==
[~2019-01-26] VITALS: Ht 160 cm; Wt 63.5 kg
--- NOTE | ~2019-01-26 | CN ---
PATIENT NAME:LINO ROGERS MEDICAL RECORD: [id number] : [birth year] LOCATION:D. D.2136 ADMIT DATE: 01/26/19 ACCOUNT: [id number] CONSULTING PHYSICIAN: FRANKI CAMPBELL MD REFERRING PHYSICIAN: ROSS HENDERSON MD DATE OF CONSULTATION: 01/28/2019 DIAGNOSES: 1. Shortness of breath, dyspnea on exertion. 2. Chronic obstructive pulmonary disease. 3. Anemia. 4. Past smoking history. 5. Past history of pulmonary embolus. 6. Hypertension. 7. Coumadin anticoagulation. HISTORY OF PRESENT ILLNESS: Ms. Rogers presents with increasing shortness of breath, dyspnea on exertion. She has multiple reasons for this. She has not had a cardiac history. She has a history of pulmonary embolus, for which she is on anticoagulation. She has anemia, which she is undergoing GI workup. She has underlying COPD. Her EKG is with no acute ST-T abnormalities. She has had no chest pain. No chest discomfort. PHYSICAL EXAMINATION: GENERAL APPEARANCE: Well nourished, well developed, appears stated age. Level of distress, comfortable. PSYCHIATRIC: Mental status, alert, normal affect. Orientation, oriented to time, place and person. EYES: Lids and conjunctiva, noninjected. No discharge, no pallor. ENT: Lips, teeth, gums, normal dentition. Oropharynx, no cyanosis, no pallor. NECK: Carotid arteries, bilateral normal upstroke, no bruits, no thrills. JUGULAR VEINS: No jugular venous pressure or distention. CERVICAL LYMPH NODES: Nontender, nonenlarged. THYROID: Not enlarged. Nontender. No nodules. LUNGS: Respiratory effort, unlabored. CHEST: Normal curvature. No thoracic deformity. No chest wall tenderness. Percussion, resonant. Auscultation, clear. No wheezes, no rales, no rhonchi. CARDIOVASCULAR: Precordial exam, nondisplaced. No heaves or pericardial thrills. Rate and rhythm, regular. Heart sounds, normal S1, normal S2. No S3, no gallop, no rub. Systolic murmur, not heard. Diastolic murmur, not heard. EXTREMITIES: No cyanosis, no edema. Peripheral pulses, full and equal in all extremities, except as noted. No bruits appreciated. ABDOMEN: Soft, nondistended. Normal aorta. No bruit. Nontender. No masses. Liver, nontender, no hepatomegaly. Spleen, nontender, no splenomegaly. MUSCULOSKELETAL: No joint tenderness. No joint swelling. No erythema. NEUROLOGICAL: Normal gait, normal strength, normal tone. SKIN: Warm and dry. OVERALL IMPRESSION: Shortness of breath, dyspnea on exertion, most likely this is not cardiac. We will get an echocardiogram to see her overall LV function as well as valvular structures. Other than this, no other cardiac workup and treatment seemed to be necessary at this time. CONSULT REPORT [id number] LINO ROGERS TRANSINT:[id number] Voice Confirmation ID: [id number] DOCUMENT ID: [id number] FRANKI CAMPBELL MD CC: [id number] DICTATION DATE: 01/28/19429 SUSHI CHEF: 01/28/19443 ADM IN [facility] [address] [id number]
[2019-01-26 16:24] LABS: BASOPHILS 0.2 % (0-2); EOSINOPHILS 1.8 % (0-7); HEMATOCRIT 26.9 % (36.0-48.0); IMMATURE GRANULOCYTES 0.7 % (0-5); MCH 23.7 pg (26.0-34.0); MCHC 29.7 g/dL (31.0-37.0); MCV 79.6 fL (80.0-100.0); MEAN PLATELET VOLUME 8.8 fL (7.4-10.4); NEUTROPHILS 77.3 % (40-80); PLATELET COUNT 249 10x3/uL (130-400); RBC 3.38 10x6/uL (4.00-5.40); RDW 18.4 % (11.5-14.5); WBC 8.8 10x3/uL (4.8-10.8)
[2019-01-26 16:34] LABS: APTT 32.9 SECONDS (22.8-39.4); INR 2.1 (0.85-1.17); PROTIME 22.9 SECONDS (11.6-15.0)
[2019-01-26 16:43] LABS: ALKALINE PHOSPHATASE 38 U/L (46-116); ALT (SGPT) 27 U/L (10-68); BILIRUBIN - TOTAL 0.23 mg/dL (0.2-1.3); CALCIUM 7.6 mg/dL (8.5-10.1); CARBON DIOXIDE 25.9 mmol/L (21.0-32.0); CHLORIDE - SERUM 104 mmol/L (98-107); CREATININE - SERUM 0.9 mg/dL (0.6-1.3); PROTEIN - SERUM 6.4 g/dL (6.4-8.2); SODIUM 141 mmol/L (136-145); UREA NITROGEN 10 mg/dL (7-18); eGFR NON AFRICAN AMERICAN 66 mL/min (90-120)
[2019-01-26 16:55] LABS: CKMB 0.8 U/L (0.0-3.6); CREATINE KINASE 33 UL (21-215); PRO BNP 208 pg/mL (0-125)
[2019-01-26 16:56] LABS: CALC OSMOLALITY 283 mosm/kg (275-300); GLUCOSE 172 mg/dL (74-106); TROPONIN-I < 0.017 ng/mL (0.000-0.060)
[2019-01-26 19:00] VITALS: BP 146/85
--- NOTE | 2019-01-26 19:15 | NUR ---
PT UPDATED ON PLAN OF CARE. NO S/S OF ACUTE DISTRESS NOTED AT THIS TIME.
[2019-01-26 20:00] VITALS: BP 119/64
[2019-01-26 20:02] LABS: % SATURATION 3 % (15-55); IRON 11 ug/dl (35-150); TOTAL IRON BIND CAPACITY 337 ug/dl (260-445); UNSAT IRON BIND CAPACITY 326 ug/dl (150-375)
--- NOTE | 2019-01-26 20:15 | NUR ---
PT RESTING ON BED. LIGHTS LOW. PT DENIES NEEDS AT THIS TIME.
--- NOTE | 2019-01-26 21:00 | NUR ---
PT AMBULATED TO RESTROOM WITH A STEADY GAIT. SOB NOTED ON RETURN TO PT ROOM. PT PLACED BACK ON O2. PT REFUSES BEDSIDE COMMODE.
[2019-01-26 21:30] VITALS: BP 152/85
--- NOTE | 2019-01-26 21:30 | NUR ---
ORIGINAL PAPER FORM LISTED INCORRECT WRIST BAND#, REVISED FORM PRINTED BY BLOOD BANK AND VERIFIED BY 2 RNS INCLUDING CHARGE NURSE MARGARITA MERIDA RN. BLOOD TRANSFUSION INITIATED AT THIS TIME.
[2019-01-26 21:45] VITALS: BP 141/80
--- NOTE | 2019-01-26 22:15 | NUR ---
PT ARRIVED TO M2 WITH HOSPITAL STAFF, PT ALER AND ORIENTED.
[2019-01-27] VITALS (7 sets, daily range): BP systolic 113–145; BP diastolic 54–70; Ht 160 cm; Wt 63.5 kg
--- NOTE | 2019-01-27 01:45 | NUR ---
PT LAB HCT RESULT BACK 2.94, ACCORDING TO DR. ESQUIVEL'S ORDERED, NO NEEDS OTHER UNIT OF BLOOD FOR PT.
--- NOTE | 2019-01-27 02:10 | NUR ---
TEMELETRY IS NOT AVAILABLE.
--- NOTE | 2019-01-27 03:49 | NUR ---
I have reviewed this patient and I concur with the Shift Assessment completed by the Licensed Practical Nurse today this shift.
--- NOTE | 2019-01-27 04:28 | NUR ---
RN ASSESSMENTS COMPLETED. PATIENT ALERT/AWAKE ORIENTED X4. DENIES PAIN OR ANY NEEDS.
[2019-01-27 07:15] LABS: BASOPHILS 0.4 % (0-2); EOSINOPHILS 1.9 % (0-7); HEMATOCRIT 29.9 % (36.0-48.0); HEMOGLOBIN 9.4 g/dL (12-16); IMMATURE GRANULOCYTES 0.6 % (0-5); LYMPHOCYTES 14.3 % (15-50); MCH 24.9 pg (26.0-34.0); MCHC 31.4 g/dL (31.0-37.0); MCV 79.1 fL (80.0-100.0); MEAN PLATELET VOLUME 8.8 fL (7.4-10.4); MONOCYTES 10.6 % (2-11); NEUTROPHILS 72.2 % (40-80); PLATELET COUNT 247 10x3/uL (130-400); RBC 3.78 10x6/uL (4.00-5.40); RDW 17.2 % (11.5-14.5); WBC 8.6 10x3/uL (4.8-10.8)
--- NOTE | 2019-01-27 07:21 | NUR ---
AM ROUNDS- PT RESTING IN BED, A/O X4, RESP EVEN AND NONLABORED ON 2L. PT C/O BEING SOB, INSTRUCTED HER TO TAKE SLOW DEEP BREATHS. RT FA IV SL. PT DENIES ANY NEED AT THIS TIME. CALL LIGHT IN REACH, NAD NOTED,W ILL CONTINUE PLAN OF CARE.
[2019-01-27 07:36] LABS: CALC OSMOLALITY 291 mosm/kg (275-300); CALCIUM 7.9 mg/dL (8.5-10.1); CHLORIDE - SERUM 106 mmol/L (98-107); CREATININE - SERUM 0.8 mg/dL (0.6-1.3); GLUCOSE 143 mg/dL (74-106); POTASSIUM - SERUM 3.6 mmol/L (3.5-5.1); SODIUM 146 mmol/L (136-145); UREA NITROGEN 10 mg/dL (7-18); eGFR NON AFRICAN AMERICAN 75 mL/min (90-120)
[2019-01-27 07:41] LABS: CARBON DIOXIDE 32.8 mmol/L (21.0-32.0)
--- NOTE | 2019-01-27 11:12 | NUR ---
BLOOD SUGAR OF 227, 8UNITS OF HUMULIN GIVEN PER S/S. PT DENIES ANY NEEDS AT THIS TIME. SENIOR FIRE PROTECTION ENGINEER AT BEDSIDE GETTING PT'S VITALS. CALL LIGHT IN REACH, NAD NOTED, WILL CONTINUE TO MONITOR.
--- NOTE | 2019-01-27 16:03 | NUR ---
BLOOD SUAGR OF 217, 8UNITS GIVEN PER S/S. PT IN BED, DENIES ANY NEEDS AT THIS TIME. CALL LIGHT IN REACH, NAD NOTED.
[2019-01-27 17:01] LABS: BASOPHILS 0.2 % (0-2); EOSINOPHILS 1.2 % (0-7); HEMATOCRIT 28.9 % (36.0-48.0); HEMOGLOBIN 9.1 g/dL (12-16); IMMATURE GRANULOCYTES 0.9 % (0-5); LYMPHOCYTES 14.7 % (15-50); MCH 25.1 pg (26.0-34.0); MCHC 31.5 g/dL (31.0-37.0); MCV 79.6 fL (80.0-100.0); MEAN PLATELET VOLUME 8.7 fL (7.4-10.4); PLATELET COUNT 236 10x3/uL (130-400); RBC 3.63 10x6/uL (4.00-5.40); RDW 17.1 % (11.5-14.5); WBC 8.2 10x3/uL (4.8-10.8)
--- NOTE | 2019-01-27 21:05 | NUR ---
PT FSBS 177 REFUSED HUMULIN REG. CALL LIGHT IN REACH.
--- NOTE | 2019-01-27 22:34 | NUR ---
BROUGHT SNACKS APPLE SAUCE AND GRAMHAM CRACKERS FOR PT.
[2019-01-28] VITALS (7 sets, daily range): BP systolic 128–149; BP diastolic 58–76
--- NOTE | 2019-01-28 02:46 | NUR ---
REST QUIELTY IN BED, CALL LIGHT IN REACH.
--- NOTE | 2019-01-28 04:12 | NUR ---
I have reviewed this patient and I concur with the Shift Assessment completed by the Licensed Practical Nurse today this shift.
--- NOTE | 2019-01-28 04:58 | NUR ---
CAN'T FIND PT'S CHART, HAVE BEEN LOOK FOR WHOLE NIGHT.
[2019-01-28 08:42] LABS: BASOPHILS 0.2 % (0-2); EOSINOPHILS 2.1 % (0-7); HEMATOCRIT 28.8 % (36.0-48.0); HEMOGLOBIN 8.8 g/dL (12-16); IMMATURE GRANULOCYTES 0.7 % (0-5); LYMPHOCYTES 15.8 % (15-50); MCH 24.6 pg (26.0-34.0); MCHC 30.6 g/dL (31.0-37.0); MCV 80.4 fL (80.0-100.0); MEAN PLATELET VOLUME 8.6 fL (7.4-10.4); MONOCYTES 10.3 % (2-11); NEUTROPHILS 70.9 % (40-80); PLATELET COUNT 259 10x3/uL (130-400); RBC 3.58 10x6/uL (4.00-5.40); RDW 17.5 % (11.5-14.5); WBC 8.5 10x3/uL (4.8-10.8)
--- NOTE | 2019-01-28 09:15 | NUR ---
CALLED PHARMACY AND INFORMED HIM THAT I NEED GLUCOTROL FOR PT.
--- NOTE | 2019-01-28 12:36 | NUR ---
BLOOD SUGAR OF 217, 8UNITS OF HUMULIN GIVEN PER S/S. PT UP TO SIDE OF BED, FIXING TO EAT LUNCH, DENIES ANY NEEDS AT THIS TIME. CALLL LIGHT IN REACH, NAD NOTED,W ILL CONTINUE TO MONITOR.
--- NOTE | 2019-01-28 18:08 | NUR ---
RT FA IV SITE RED AND A LITTLE HARD, D/C IV WITH CATHETER TIP INTACT. EKG DONE AND UPLOADED TO [facility]. PT DENIES ANY NEEDS AT THIS TIME. CALL LIGHT IN REACH, NAD NOTED. WILL START NEW IV.
--- NOTE | 2019-01-28 20:05 | NUR ---
PT RESTING IN BED WATCHING TV. RR EVEN AND UNLABORED. NO S/S OF DISTRESS. BED LOW CALL LIGHT WITHIN REACH. WILL CONTINUE TO MONITOR
[2019-01-29 00:30] VITALS: BP 123/46; BP 131/60
--- NOTE | 2019-01-29 01:57 | NUR ---
PT SLEEPING IN BED RR EVEN AND UNLABORED. BED LOW CALL LIGHT WITHIN REACH. WILL CONTINUE TO MONITOR.
[2019-01-29 04:30] VITALS: BP 127/56
--- NOTE | 2019-01-29 05:13 | NUR ---
I have reviewed this patient and I concur with the Shift Assessment completed by the Licensed Practical Nurse today this shift.
[2019-01-29 05:50] LABS: BASOPHILS 0.1 % (0-2); EOSINOPHILS 0.1 % (0-7); HEMATOCRIT 27.6 % (36.0-48.0); HEMOGLOBIN 8.7 g/dL (12-16); IMMATURE GRANULOCYTES 0.8 % (0-5); LYMPHOCYTES 7.1 % (15-50); MCH 24.9 pg (26.0-34.0); MCHC 31.5 g/dL (31.0-37.0); MCV 78.9 fL (80.0-100.0); MEAN PLATELET VOLUME 8.9 fL (7.4-10.4); MONOCYTES 4.8 % (2-11); NEUTROPHILS 87.1 % (40-80); PLATELET COUNT 275 10x3/uL (130-400); RDW 17.4 % (11.5-14.5); WBC 8.6 10x3/uL (4.8-10.8)
[2019-01-29 08:33] VITALS: BP 152/80
--- NOTE | 2019-01-29 11:05 | NUR ---
PT IN SEMI FOWLERS POSITION. 0800 ORDERED PROTONIX GIVEN NOW IVP. HELD EARLIER DUE TO PT LEAVING FLOOR FOR PFTS. DROPPED VIAL INTO SHARPS CONTAINER SO UNABLE TO SCAN. ALL ACTIONS PRECEPTED BY CAITIE TAFOYA.
[2019-01-29 11:48] VITALS: BP 143/72
--- NOTE | 2019-01-29 12:10 | MORECARE ---
CASE MANAGEMENT DISCHARGE SUMMARY PATIENT: LINO ROGERS ANN UNIT: [id number] ADM DATE: 01/26/19 AGE: 68 : 48 SEX: F ROOM/BED: D.2136 AUTHOR: FAYE YANG PHYSICIAN: REFERRING PHYSICIAN: ROSS HENDERSON MD DATE OF SERVICE: 01/29/19 Discharge Plan Patient Name: LINO ROGERS [facility] [facility] 1950 Planned Disposition: Home Anticipated Discharge Date: Discharge Date: Expected LOS: Initial Reviewer: [id number] Initial Review Date: 01/29/2019 Generated: 01/29/19 1:10 pm DCPIA - Discharge Planning Initial Assessment Updated by [email or web address]: Reid Mario on 01/29/19 12:08 pm * Is the patient Alert and Oriented? Yes * How many steps to enter\exit or inside your home? * PCP DR. JO * Pharmacy [facility] [address] [place] [address] * Preadmission Environment Home with Family * ADLs Independent * Equipment Nebulizer * Other Equipment [facility] - MEDICAL EQUIPMENT PROVIDER PREFERENCE * List name and contact numbers for known caregivers / representatives who currently or will assist patient after discharge: YASH ROGERS, SPOUSE, RADHA CERDA, FRIEND, * Verbal permission to speak to the caregivers and representatives has been obtained from the patient. Yes * Community resources currently utilized None * Please name any agencies selected above. NONE * Additional services required to return to the preadmission environment? No * Can the patient safely return to the preadmission environment? Yes * Has this patient been hospitalized within the prior 30 days at any hospital? Yes Patient Name: LINO ROGERS Page [phone] at 1210 All edits/amendments must be made on the electronic document DICTATION DATE: 01/29/19 1210 CAR WASHER: MIRA 01/29/19 1210 RPT#: [id number] DC DATE: STATUS: ADM IN [facility] [address] [place] [address] END OF REPORT
--- NOTE | 2019-01-29 12:17 | MORECARE ---
CASE MANAGEMENT DISCHARGE SUMMARY PATIENT: LINO ROGERS ANN UNIT: [id number] ADM DATE: 01/26/19 AGE: 68 : 46 SEX: F ROOM/BED: D.9319 AUTHOR: TREY,DOC PHYSICIAN: REFERRING PHYSICIAN: ROSS HENDERSON MD DATE OF SERVICE: 01/29/19 Discharge Plan Patient Name: LINO ROGERS Facility: [facility]:[place] : 1950 Planned Disposition: Home Anticipated Discharge Date: Discharge Date: Expected LOS: Initial Reviewer: [email or web address] Initial Review Date: 01/29/2019 Generated: 01/29/19 1:17 pm Comments DCP- Discharge Planning Updated by [email or web address]: Reid Mario on 01/29/19 11:[address] Patient Name: LINO ROGERS Admission Status: ER Accout number: [id number] Admission Date: 01-26-2019 : 1950 Admission Diagnosis:SHORTNESS OF BREATH Attending: ROSS HENDERSON Current LOS: 3 Anticipated DC Date: Planned Disposition: Home Primary Insurance: MEDICARE A & B Discharge Planning Comments: CM MET WITH PT IN ROOM TO DISCUSS DISCHARGE PLANNING AND NEEDS. PT REPORTS LIVING AT HOME INDEPENDENTLY WITH HER SPOUSE. PT HAS NEBULIZER AND HAS BEEN TESTED FOR OXYGEN AND SHE NEVER FALLS 88% OR BELOW. PT DOUBTS SHE WILL QUALIFY FOR HOME OXYGEN BUT IF SHE DOES, SHE WANTS IT ARRANGED WITH [facility], NOT [facility] PATIENT WHOM HER USES SHE IS NOT HAPPY WITH THEIR SERVICE. PT HAS NO OUTSIDE SERVICES ASSISTING IN THE HOME. CM DISCUSSED AVAILABILITY OF HOME HEALTH, REHAB SERVICES AND MEDICAL EQUIPMENT. PT DENIES DISCHARGE NEEDS, REPORTS HER SPOUSE OR FRIEND WILL PICK HER UP FOR DISCHARGE HOME. IMPORTANT MESSAGE FROM MEDICARE PROVIDED AND EXPLAINED. PT PLANS TO DISCHARGE HOME WITH SPOUSE, DENIES NEEDS FOR DISCHARGE AT THIS TIME. FAMILY OR FRIEND TO TRANSPORT HOME AT DISCHARGE. CM TO FOLLOW AND ASSIST NEEDED. Transformer Repairer: Reid Mario DCPIA - Discharge Planning Initial Assessment Updated by [email or web address]: Reid Mario on 01/29/19 12:08 pm * Is the patient Alert and Oriented? Yes * How many steps to enter\exit or inside your home? * PCP DR. JO * Pharmacy [facility] [address] [place] [address] * Preadmission Environment Home with Family * ADLs Independent * Equipment Nebulizer * Other Equipment [facility] - MEDICAL EQUIPMENT PROVIDER PREFERENCE * List name and contact numbers for known caregivers / representatives who currently or will assist patient after discharge: YASH ROGERS, SPOUSE, RADHA CERDA, FRIEND, * Verbal permission to speak to the caregivers and representatives has been obtained from the patient. Yes * Community resources currently utilized None * Please name any agencies selected above. NONE * Additional services required to return to the preadmission environment? No * Can the patient safely return to the preadmission environment? Yes * Has this patient been hospitalized within the prior 30 days at any hospital? Yes Coverage Notice Reviewer: [id number] Robel Mario Notice Issued Date-Time: 01/29/2019 11:25 Notice Type: IM Discharge Notice Notice Delivered To: Patient Relationship to Patient: Cyber Intelligence Analyst Name: Delivery Method: HAND - Hand Delivered Sara Days: Prior Verbal Notification: Recipient Understood Notice: Yes Recipient Signature: Yes Med Rec Note Co-signed by Attending: Coverage Notice Comment: Last DP export: 01/29/19 11:10 a Patient Name: LINO ROGERS Page [phone] at 1217 All edits/amendments must be made on the electronic document DICTATION DATE: 01/29/19 1217 DEMAND GENERATION MANAGER: MIRA 01/29/19 1217 RPT#: [id number] DC DATE: STATUS: ADM IN [facility] [address] [place] [address] END OF REPORT
[2019-01-29 15:52] VITALS: BP 121/66
--- NOTE | 2019-01-29 19:48 | NUR ---
PT MAKING BED WHEN I WALKED INTO ROOM AND SOB. INSTRUCTED PT TO SIT ON SIDE OF BED AND DEEP BREATH. PT ON 2L NC. O2 96% PT RR EASED TO 18. PT DENIES ANY NEEDS AT THIS TIME. BED LOW CALL LIGHT WITHIN REACH. WILL CONTINUE TO MONITOR.
[2019-01-29 20:00] VITALS: BP 118/47
[2019-01-30 05:00] VITALS: BP 139/52
[2019-01-30 06:27] LABS: BASOPHILS 0.1 % (0-2); EOSINOPHILS 1.3 % (0-7); HEMATOCRIT 29.7 % (36.0-48.0); HEMOGLOBIN 9.2 g/dL (12-16); LYMPHOCYTES 12.7 % (15-50); MCH 24.6 pg (26.0-34.0); MCV 79.4 fL (80.0-100.0); MEAN PLATELET VOLUME 8.9 fL (7.4-10.4); MONOCYTES 10.9 % (2-11); PLATELET COUNT 306 10x3/uL (130-400); RBC 3.74 10x6/uL (4.00-5.40); RDW 17.6 % (11.5-14.5)
[2019-01-30 06:54] LABS: WBC 13.4 10x3/uL (4.8-10.8)
[2019-01-30 09:10] VITALS: BP 152/73
--- NOTE | 2019-01-30 10:20 | NUR ---
PT RESTING IN BED, REPORTS 2 EPISODES OF DIARRHEA OVERNIGHT AND ONE EPISODE OF DIARRHEA THIS AM, NOTIFIED SCOTT WINSLOW. NEW ORDER RECIEVED TO OBTAIN STOOL SAMPLE AND RUN FOR C-DIFF. HAT PLACED IN PT TOILET AND PT VERBALIZED UNDERSTANDING. SHIFT ASSESSMENT PERFORMED. CONT O2 AT 2L NC. DENIES ANY OTHER NEEDS AT THIS TIME. DENIES PAIN AT THIS TIME, WILL CONT TO FOLLOW PLAN OF CARE
[2019-01-30 10:37] LABS: CALC OSMOLALITY 281 mosm/kg (275-300); CALCIUM 8.8 mg/dL (8.5-10.1); CARBON DIOXIDE 28.1 mmol/L (21.0-32.0); CHLORIDE - SERUM 103 mmol/L (98-107); CREATININE - SERUM 0.8 mg/dL (0.6-1.3); GLUCOSE 116 mg/dL (74-106); POTASSIUM - SERUM 4.2 mmol/L (3.5-5.1); SODIUM 140 mmol/L (136-145); UREA NITROGEN 19 mg/dL (7-18); eGFR NON AFRICAN AMERICAN 75 mL/min (90-120)
--- NOTE | 2019-01-30 12:03 | NUR ---
FSBS 251, PT IS NPO FOR EGD. AFRAID OF HYPOGLYCEMIA, WILL HOLD THIS DOSE OF INSULIN AND RECHECK FSBS AT 1600
[2019-01-30 13:24] VITALS: BP 148/80
--- NOTE | 2019-01-30 13:30 | NUR ---
GI LAB CALLED TO PREOP PT, PT PREOP ORDERED. GI HERE TO TAKE PT
--- NOTE | 2019-01-30 14:18 | NUR ---
PT RETURNED FROM GI LAB, VSS AND WNL. WILL CONT TO FOLLOW POC
--- NOTE | 2019-01-30 14:32 | NUR ---
Nutrition Follow Up: NPO today Previously on DM diet with 75-100% intake of meals RD following
[2019-01-30 17:05] VITALS: BP 146/63
[2019-01-30 20:00] VITALS: BP 183/76
--- NOTE | 2019-01-30 20:13 | NUR ---
PT SITTING UP IN BED ALERT AND ORIENTED. PT DENIES ANY NEDDS OR PAIN AT THIS TIME. BED LOW CALL LIGHT WITHIN REACH. WILL CONTINUE TO MONITOR.
[2019-01-31 05:40] LABS: BASOPHILS 0.1 % (0-2); EOSINOPHILS 0.1 % (0-7); HEMATOCRIT 27.9 % (36.0-48.0); HEMOGLOBIN 8.6 g/dL (12-16); IMMATURE GRANULOCYTES 2.4 % (0-5); LYMPHOCYTES 8.1 % (15-50); MCH 24.3 pg (26.0-34.0); MCHC 30.8 g/dL (31.0-37.0); MCV 78.8 fL (80.0-100.0); MEAN PLATELET VOLUME 8.9 fL (7.4-10.4); MONOCYTES 9.2 % (2-11); NEUTROPHILS 80.1 % (40-80); PLATELET COUNT 302 10x3/uL (130-400); RBC 3.54 10x6/uL (4.00-5.40); RDW 17.5 % (11.5-14.5); WBC 13.9 10x3/uL (4.8-10.8)
[2019-01-31 06:03] LABS: ANION GAP 12.8 mmol/L (8-16); CALCIUM 8.7 mg/dL (8.5-10.1); CARBON DIOXIDE 28.1 mmol/L (21.0-32.0); CREATININE - SERUM 0.9 mg/dL (0.6-1.3); POTASSIUM - SERUM 3.9 mmol/L (3.5-5.1)
[2019-01-31 06:22] VITALS: BP 150/76
[2019-01-31] MEDS ORDERED: PREDNISONE20 MG PO (07:55)
--- NOTE | 2019-01-31 08:13 | NUR ---
SPOKE WITH DR. THRASHER HE STATED IT'S OK FOR PT TO DC AND TO START COUMADIN NOW.
--- NOTE | 2019-01-31 08:33 | NUR ---
STATED TO PT SHE IS TO BE DC'D TODAY. PT STATES SHE IS REFUSING TO GO BECAUSE SHE IS "STILL SOB AND THEY ARE SUPPOSSED TO DO A HEART CATH." STATED TO PT I'LL SPEAK WITH SCOTT JEAN ABOUT HER CONCERNS. SPOKE WITH SCTOT JEAN AND SHE STATES SHE WILL COME SPEAK WITH PT.
[2019-01-31 09:08] VITALS: BP 148/70
[2019-01-31 11:31] VITALS: BP 135/64
--- NOTE | 2019-01-31 12:03 | NUR ---
SCOTT DILLONN HAD DISCUSSION WITH PT ABOUT BEING DC AND SHE STATED TO SHE IS GOING HOME ALONG WITH VOCATIONAL EDUCATION TEACHER AND THIS NURSE. PT C/O SOB. O2 SAT 94% ON ROOM AIR. PT STATES SHE IS GOING TO EAT HER LUNCH BEFORE LEAVING. I VERBALIZED UNDERSTANDING. LEFT AC 22G IV DC'D WITH CATH INTACT. DISCHARGE INSTRUCTIONS EXPLAINED TO PT AND ALL QUESTIONS ANSWERED. PT COPY GIVEN TO HER. CHART COPY SIGNED.
--- NOTE | 2019-01-31 12:32 | NUR ---
PT TAKEN DOWN VIA WC BY MANAGER REGIONAL SALES.
--- NOTE | 2019-02-02 09:18 | MORECARE ---
CASE MANAGEMENT DISCHARGE SUMMARY PATIENT: LINO ROGERS ANN UNIT: [id number] ADM DATE: 01/26/19 AGE: 68 : 46 SEX: F ROOM/BED: D.8243 AUTHOR: TREY,DOC PHYSICIAN: REFERRING PHYSICIAN: ROSS HENDERSON MD DATE OF SERVICE: 02/02/19 Discharge Plan Patient Name: LINO ROGERS Facility: [facility]:[place] : 1950 Planned Disposition: Home Anticipated Discharge Date: 01/31/19 Discharge Date: 01/31/2019 Expected LOS: 5 Initial Reviewer: [email or web address] Initial Review Date: 01/29/2019 Generated: 02/02/19 10:18 am DCP- Discharge Planning Updated by [email or web address]: Reid Mario on 01/29/19 11:[address] Patient Name: LINO ROGERS Admission Status: ER Accout number: [id number] Admission Date: 01-26-2019 : 1950 Admission Diagnosis:SHORTNESS OF BREATH Attending: ROSS HENDERSON Current LOS: 3 Anticipated DC Date: Planned Disposition: Home Primary Insurance: MEDICARE A & B Discharge Planning Comments: CM MET WITH PT IN ROOM TO DISCUSS DISCHARGE PLANNING AND NEEDS. PT REPORTS LIVING AT HOME INDEPENDENTLY WITH HER SPOUSE. PT HAS NEBULIZER AND HAS BEEN TESTED FOR OXYGEN AND SHE NEVER FALLS 88% OR BELOW. PT DOUBTS SHE WILL QUALIFY FOR HOME OXYGEN BUT IF SHE DOES, SHE WANTS IT ARRANGED WITH [facility], NOT [facility] PATIENT WHOM HER USES SHE IS NOT HAPPY WITH THEIR SERVICE. PT HAS NO OUTSIDE SERVICES ASSISTING IN THE HOME. CM DISCUSSED AVAILABILITY OF HOME HEALTH, REHAB SERVICES AND MEDICAL EQUIPMENT. PT DENIES DISCHARGE NEEDS, REPORTS HER SPOUSE OR FRIEND WILL PICK HER UP FOR DISCHARGE HOME. IMPORTANT MESSAGE FROM MEDICARE PROVIDED AND EXPLAINED. PT PLANS TO DISCHARGE HOME WITH SPOUSE, DENIES NEEDS FOR DISCHARGE AT THIS TIME. FAMILY OR FRIEND TO TRANSPORT HOME AT DISCHARGE. CM TO FOLLOW AND ASSIST NEEDED. Optomechanical Engineer: Reid Mario DCPIA - Discharge Planning Initial Assessment Updated by [email or web address]: Reid Mario on 01/29/19 12:08 pm * Is the patient Alert and Oriented? Yes * How many steps to enter\exit or inside your home? * PCP DR. JO * Pharmacy [facility] [address] [place] [address] * Preadmission Environment Home with Family * ADLs Independent * Equipment Nebulizer * Other Equipment [facility] - MEDICAL EQUIPMENT PROVIDER PREFERENCE * List name and contact numbers for known caregivers / representatives who currently or will assist patient after discharge: YASH ROGERS, SPOUSE, RADHA CERDA, FRIEND, * Verbal permission to speak to the caregivers and representatives has been obtained from the patient. Yes * Community resources currently utilized None * Please name any agencies selected above. NONE * Additional services required to return to the preadmission environment? No * Can the patient safely return to the preadmission environment? Yes * Has this patient been hospitalized within the prior 30 days at any hospital? Yes Coverage Notice Reviewer: [id number] Robel Mario Notice Issued Date-Time: 01/29/2019 11:25 Notice Type: IM Discharge Notice Notice Delivered To: Patient Relationship to Patient: Job Trainer Name: Delivery Method: HAND - Hand Delivered Sara Days: Prior Verbal Notification: Recipient Understood Notice: Yes Recipient Signature: Yes Med Rec Note Co-signed by Attending: Coverage Notice Comment: Last DP export: 01/29/19 11:17 a Patient Name: LINO ROGERS Page [id number] at 0918 All edits/amendments must be made on the electronic document DICTATION DATE: 02/02/19916 FRICTION SAW OPERATOR: MIRA 02/02/19916 RPT#: [id number] DC DATE:01/31/19 STATUS: DIS IN [facility] [address] [place] [address] END OF REPORT
== END 2019-01-31 13:15 | disposition home or self-care (01) | DRG 811 ==
LOC: D.ER 15:48 → D.EDHOLD 19:54 → D.M2 19:54
PROVIDERS: Family Medicine; Internal Medicine Gastroenterology; ADMIT Internal Medicine Nephrology; ATTEND Internal Medicine Nephrology
PROC: 0DJ08ZZ Inspection of Upper Intestinal Tract, Via Natural or Artificial Opening Endoscopic (ICD-10-PCS; principal; 2019-01-30 13:30)
DX: D50.9 Iron deficiency anemia, unspecified (principal); J96.01 Acute respiratory failure with hypoxia; Z79.01 Long term (current) use of anticoagulants; E11.40 Type 2 diabetes mellitus with diabetic neuropathy, unspecified; I10 Essential (primary) hypertension; R19.5 Other fecal abnormalities; K21.0 Gastro-esophageal reflux disease with esophagitis; K44.9 Diaphragmatic hernia without obstruction or gangrene; J43.9 Emphysema, unspecified; Z86.711 Personal history of pulmonary embolism

== ENCOUNTER → 2019-03-30 11:32 | Outpatient (CLI) | payer MEDICARE, OTHER ==
[2019-01-27 16:41] VITALS: BMI 24.8
== END | disposition home or self-care (01) ==
LOC: D.RAD 11:32
PROVIDERS: ATTEND Internal Medicine Pulmonary Disease
DX: R07.9 Chest pain, unspecified (principal)

== ENCOUNTER 2019-12-09 10:00 | Outpatient (CLI) | payer MEDICARE, OTHER ==
[2019-01-27 16:41] VITALS: BMI 24.8
== END 2019-12-09 11:00 | disposition home or self-care (01) ==
LOC: D.MAMMO 10:00
PROVIDERS: ATTEND Family Medicine
DX: Z12.31 Encounter for screening mammogram for malignant neoplasm of breast (principal)

== ENCOUNTER 2020-12-22 14:30 | Outpatient (CLI) | payer MEDICARE, OTHER ==
[2019-01-27 16:41] VITALS: BMI 24.8
== END 2020-12-22 23:59 | disposition home or self-care (01) ==
LOC: D.MAMMO 14:30
PROVIDERS: ATTEND Family Medicine
DX: Z12.31 Encounter for screening mammogram for malignant neoplasm of breast (principal)

== ENCOUNTER 2021-03-22 10:57 | Inpatient (IN) | payer MEDICARE, OTHER ==
[~2021-03-22] VITALS: Ht 160 cm; Wt 61.7 kg
[2021-03-22 11:52] LABS: BASOPHILS 0.5 % (0-2); EOSINOPHILS 0.7 % (0-7); HEMATOCRIT 36.5 % (36.0-48.0); HEMOGLOBIN 11.5 g/dL (12-16); LYMPHOCYTES 8.3 % (15-50); MCH 24.8 pg (26.0-34.0); MCHC 31.6 g/dL (31.0-37.0); MCV 78.5 fL (80.0-100.0); MEAN PLATELET VOLUME 6.8 fL (7.4-10.4); MONOCYTES 7.8 % (2-11); NEUTROPHILS 82.7 % (40-80); RBC 4.64 10x6/uL (4.00-5.40); RDW 17.5 % (11.5-14.5); WBC 15.8 10x3/uL (4.8-10.8)
[2021-03-22 12:00] LABS: CALC OSMOLALITY 286 mosm/kg (275-300); CALCIUM 8.7 mg/dL (8.5-10.1); CARBON DIOXIDE 24.4 mmol/L (21.0-32.0); CHLORIDE - SERUM 98 mmol/L (98-107); CREATININE - SERUM 1.4 mg/dL (0.6-1.3); GLUCOSE 97 mg/dL (74-106); POTASSIUM - SERUM 3.7 mmol/L (3.5-5.1); SODIUM 138 mmol/L (136-145); UREA NITROGEN 44 mg/dL (7-18); eGFR NON AFRICAN AMERICAN 39 mL/min (90-120)
[2021-03-22 12:05] LABS: APTT 35.2 SECONDS (22.8-39.4); INR 2.25 (0.85-1.17); PROTIME 23.1 SECONDS (11.6-15.0)
[2021-03-22 12:15] LABS: ALBUMIN 3.5 g/dL (3.4-5.0); ALKALINE PHOSPHATASE 55 U/L (30-120); ALT (SGPT) 27 U/L (10-68); BILIRUBIN - TOTAL 0.34 mg/dL (0.2-1.3); CKMB 1.5 U/L (0.0-3.6); CREATINE KINASE 48 UL (21-215); PRO BNP 38 pg/mL (0-125); PROTEIN - SERUM 7.3 g/dL (6.4-8.2); TROPONIN-I < 0.017 ng/mL (0.000-0.060)
[2021-03-22 12:18] LABS: PLATELET COUNT 491 10x3/uL (130-400)
[2021-03-22] MEDS ORDERED: JANTOVEN5 MG PO (23:30)
[2021-03-22] MEDS ORDERED: KLOR-CON M2020 MEQ PO (23:33)
[2021-03-22] MEDS ORDERED: FUROSEMIDE20 MG PO (23:35)
[2021-03-23] VITALS (7 sets, daily range): BP systolic 96–129; BP diastolic 44–69; Ht 160 cm; Wt 61.7 kg
--- NOTE | 2021-03-23 01:45 | NUR ---
RECIEVED REPORT FROM ER. ARRIVED TO FLOOR IN W/C. DENIES ANY NEEDS AT THIS TIME. ASSESSMENT COMPLETED.
[2021-03-23 06:08] LABS: BASOPHILS 0.1 % (0-2); EOSINOPHILS 0.1 % (0-7); HEMATOCRIT 32.4 % (36.0-48.0); HEMOGLOBIN 10.5 g/dL (12-16); LYMPHOCYTES 10.4 % (15-50); MCH 25.3 pg (26.0-34.0); MCHC 32.4 g/dL (31.0-37.0); MEAN PLATELET VOLUME 6.9 fL (7.4-10.4); MONOCYTES 11.8 % (2-11); NEUTROPHILS 77.6 % (40-80); PLATELET COUNT 427 10x3/uL (130-400); RBC 4.15 10x6/uL (4.00-5.40); RDW 17.3 % (11.5-14.5)
[2021-03-23 06:46] LABS: ALBUMIN 3.2 g/dL (3.4-5.0); ANION GAP 17.5 mmol/L (8-16); BILIRUBIN - TOTAL 0.31 mg/dL (0.2-1.3); CALCIUM 8.2 mg/dL (8.5-10.1); CARBON DIOXIDE 24.2 mmol/L (21.0-32.0); CREATININE - SERUM 1.4 mg/dL (0.6-1.3); MAGNESIUM - SERUM 1.4 mg/dL (1.8-2.4); PHOSPHOROUS 3.2 mg/dL (2.5-4.9); POTASSIUM - SERUM 3.7 mmol/L (3.5-5.1); PROTEIN - SERUM 6.2 g/dL (6.4-8.2)
--- NOTE | 2021-03-23 18:29 | NUR ---
PATIENT IV X1 STICK TO RIGHT FOREARM NO COMPLICATIONS, IV FLUIDS INFUSING, NO NEEDS AT THIS TIME, CLIR, BLP
[2021-03-24 06:22] LABS: MAGNESIUM - SERUM 1.5 mg/dL (1.8-2.4); PHOSPHOROUS 2.7 mg/dL (2.5-4.9)
[2021-03-24 06:37] VITALS: BP 94/47
[2021-03-24 07:44] LABS: INR 2.18 (0.85-1.17); PROTIME 22.5 SECONDS (11.6-15.0)
[2021-03-24] MEDS ORDERED: TESSALON PERLE100 MG PO (08:16)
[2021-03-24] MEDS ORDERED: MUCINEX600 MG PO (08:16)
[2021-03-24] MEDS ORDERED: OMNICEF300 MG PO (08:16)
[2021-03-24 12:30] VITALS: BP 113/62
--- NOTE | 2021-03-24 12:50 | NUR ---
PT DISCHARGED HOME WITH FAMILY MEMBER AND ALL BELONGINGS. DISCHARGE INSTRUCTIONS PROVIDED WRITTEN AND VERBALLY. PT VERBALIZED UNDERSTANDING. IV DC. IV CATH TIP INTACT. DRESSING APPLIED TO SITE
== END 2021-03-24 12:50 | disposition home or self-care (01) | DRG 191 ==
LOC: D.ER 10:57 → OBSVTIME 12:46 → D.M2 12:46 → D.EDHOLD 12:46 → D.M2 15:55
PROVIDERS: Family Medicine; ADMIT Family Medicine; ATTEND Family Medicine
DX: J43.9 Emphysema, unspecified (principal); N17.9 Acute kidney failure, unspecified; J96.11 Chronic respiratory failure with hypoxia; I10 Essential (primary) hypertension; Z79.01 Long term (current) use of anticoagulants; E11.9 Type 2 diabetes mellitus without complications